=== PATIENT | male | born 1930 | race Caucasian/White ===

== ENCOUNTER 2016-10-18 15:51 | Emergency (ER) | payer OTHER ==
--- NOTE | 2016-10-18 16:01 | PDOC ---
History of Present Illness - General History Source: Family Exam Limitations: Dementia - History of Present Illness Initial Comments: 10/18/16 16:17 The patient is a 86 year old male, with a significant past medical history of dementia and hypothyroidism who was sent to the emergency department by his PCP , , with rectal bleeding. The patients son notes seeing a stream of blood in the toilet bowl after the patient had used the bathroom. The patients son also this past week the patient has fallen 3 times. Son denies any change in his eating habits, but notes the patient has been losing weight. Son denies any previous TIAs or CVAs. Son also denies the patient being on any blood thinners. Son denies any recent fevers, chills, headache or dizziness. Son denies any recent nausea, vomit, diarrhea or constipation. Upon ED arrival the patient has no complainants of pain. Allergies: NKA Past surgical history: Hernia repair. ORIF ankle. Social History: Nonsmoker. Denies EtOH use and recreational drug use. Primary Care Physician: Dr.Andrew Westbrook <Brandon Rutherford - Last Filed: 10/18/16 16:21> - General History Source: Family Exam Limitations: No Limitations, Dementia <Katelin Wilkes - Last Filed: 10/20/16 14:26> - General Chief Complaint: Rectal Bleed Stated Complaint: bleeding from rectum Time Seen by Provider: 10/18/16 15:54 Past History <Brandon Rutherford - Last Filed: 10/18/16 16:21> <Katelni Wilkes - Last Filed: 10/20/16 14:26> - Past Medical History Allergies/Adverse Reactions: Allergies Allergy/AdvReac Type Severity Reaction Status Date / Time No Known Allergies Allergy Verified 10/18/16 15:52 Home Medications: Ambulatory Orders Atorvastatin Ca [Lipitor] 40 mg PO HS 10/18/16 Cholecalciferol (Vitamin D3) [Vitamin D3] 2,000 unit PO DAILY 10/18/16 Citalopram Hydrobromide [Citalopram HBr] 10 mg PO HS 10/18/16 Iron 0 mg PO DAILY 10/18/16 L.acidoph,Paracasei, B.lactis [Probiotic] 1 each PO DAILY 10/18/16 Review of Systems - Review of Systems Able to Perform ROS?: No (Dementia) <Brandon Rutherford - Last Filed: 10/18/16 16:21> *Physical Exam - Physical Exam Comments: 10/18/16 16:21 GENERAL: The patient is in no acute distress. HEAD: Normal with no signs of trauma. EYES: PERRLA, EOMI, sclera anicteric, pale conjunctiva. ENT: Ears normal, nares patent, oropharynx clear without exudates. Moist mucous membranes. NECK: Normal range of motion, supple without lymphadenopathy, JVD, or masses. LUNGS: Breath sounds equal, clear to auscultation bilaterally. No wheezes, and no crackles. RECTAL: Melena in the rectal vault HEART: Regular rate and rhythm, with systolic murmur at the left sternal border. ABDOMEN: Soft, nontender, normoactive bowel sounds. No guarding, no rebound. No masses palpable. EXTREMITIES: Bruise on the left forearm. Normal range of motion, no edema. NEUROLOGICAL: Cranial nerves II through XII grossly intact. Normal speech. No focal neurological deficits. MUSCULOSKELETAL: Back non-tender to palpation, no CVA tenderness SKIN: Warm, Dry, normal turgor, no rashes or lesions noted. <Brandon Rutherford - Last Filed: 10/18/16 16:21> Heart Score/ECG Review #1 ECG reviewed & interpreted by me at: 18:52 10/18/16 18:52 Twelve-lead EKG was performed and reviewed by me. There is normal sinus rhythm with a bradycardiac rate of 58 bpm. The axis is normal. The intervals are normal - pr:202ms (slightly prolonged). There are no ST elevations or depressions. T wave inversions III, aVF. RBBB No old ekg <Katelin Wilkes - Last Filed: 10/20/16 14:26> ED Treatment Course - LABORATORY CBC & Chemistry Diagram: 10/18/16 15:50 10/18/16 15:50 <Brandon Rutherford - Last Filed: 10/18/16 16:21> - LABORATORY CBC & Chemistry Diagram: 10/18/16 15:50 10/18/16 15:50 <Katelin Wilkes - Last Filed: 10/20/16 14:26> Medical Decision Making - Medical Decision Making 10/18/16 16:01 A portion of this note was documented by scribe services under my direction. I have reviewed the details of the note, within reason, and agree with the documentation with the following case summary and management plan written by me. Nursing documentation reviewed and incorporated into medical decision making This is an 86 yo M presenting to the ER s/p concern for anemia Pt son changed his pull ups today and noted rectal bleeding Pt has not had a colonoscopy Pt son contacted Dr Westbrook who sent pt to the ER The patient is a poor historian due to dementia but states he has no abdominal pain, no nausea Pt denies dizziness but pt son states he complains of "foggy eyes" When asked, the patient denies this 10/18/16 16:37 Laboratory Tests 08/05/16 10/18/16 09:37 15:50 WBC 9.4 13.3 H D Hgb 8.7 L 9.8 L D Hct 28.3 L 30.4 L Plt Count 363 D 283 D 10/18/16 17:40 10/18/16 17:40 Laboratory Tests 10/18/16 10/18/16 10/18/16 15:50 15:50 16:31 INR 1.06 Sodium 134 L Potassium 4.1 Chloride 100 Carbon Dioxide 24 BUN 22 H D Creatinine 1.2 Random Glucose 112 H D Stool Occult Blood Negative Case reviewed with Dr Westbrook Pt should be discharged to home He can be seen as an outpatient for follow up with GI I have had a long conversation with son PT should be returned to the ER for any concerns or complaints Of note I have added on troponin, pt has no complaints of chest pain, nausea, no diaphoresis Troponin within nml range Clinical Impression: rectal bleed <Katelin Wilkes - Last Filed: 10/20/16 14:26> *DC/Admit/Observation/Transfer - Attestations Scribe Attestion: 10/18/16 16:15 Documentation prepared by Brandon Rutherford, acting as medical office assistant for Katelin Wilkes MD. <Brandon Rutherford - Last Filed: 10/18/16 16:21> - Discharge Dispostion Admit: No <Katelin Wilkes - Last Filed: 10/20/16 14:26> Diagnosis at time of Disposition: Rectal bleeding - Discharge Dispostion Disposition: HOME Condition at time of disposition: Stable - Referrals Referrals: Brandon Westbrook MD [Primary Care Provider] - - Patient Instructions Printed Discharge Instructions: DI for Rectal Bleeding Additional Instructions: Thank you for bringing Mr Padron to the ER Please monitor for any weakness, repeat rectal bleeding, abdominal pain, any other concerns or complaints Return to the ER at any time for any concerns Please follow up with Dr Westbrook next week
[2016-10-18 16:22] LABS: BASOPHIL 0.7 % (0-2.0); EOSINOPHIL 1.4 % (0-4.5); MCH 27.2 pg (25.7-33.7); MCHC 32.4 g/dl (32.0-35.9); MEAN CELL VOLUME 83.9 fl (80-96); MEAN PLT VOLUME 8.2 fl (7.5-11.1); PLATELET COUNT 283 K/MM3 (134-434); RDW 13.3 % (11.9-15.9); WHITE BLOOD COUNT 13.3 K/mm3 (4.0-10.0)
[2016-10-18 16:34] LABS: INR 1.06 (0.82-1.09); PROTHROMBIN TIME (PATIENT) 11.8 SEC (10.2-13.0)
[2016-10-18 16:36] LABS: ALBUMIN 3.2 g/dl (3.5-5.0); ALK PHOS 123 U/L (32-92); ANION GAP 10 (8-16); BILIRUBIN,TOTAL 0.3 mg/dl (0.2-1.0); CALCIUM 8.7 mg/dl (8.4-10.2); CO2 24 mmol/L (22-28); CREATININE 1.2 mg/dl (0.6-1.3); GLUCOSE,RANDOM 112 mg/dl (74-106); SGOT/AST 24 U/L (10-42); SGPT/ALT 13 U/L (10-40)
[2016-10-18 16:43] VITALS: BP 142/70; PULSE 54; TEMP 97.4; BMI 22.9
[2016-10-18 19:43] LABS: TROPONIN I (DFP) 0.32 ng/ml (0.03-0.50)
--- NOTE | 2016-10-20 16:12 | EKG ---
Test Reason : Blood Pressure : / mmHG Vent. Rate : 057 BPM Atrial Rate : 057 BPM P-R Int : 202 ms QRS Dur : 122 ms QT Int : 476 ms P-R-T Axes : 053 019 -11 degrees QTc Int : 463 ms SINUS BRADYCARDIA RIGHT BUNDLE BRANCH BLOCK T WAVE ABNORMALITY, CONSIDER INFERIOR ISCHEMIA ABNORMAL ECG NO PREVIOUS ECGS AVAILABLE Confirmed by NIEVES NICOLE MD ([id number]) on 10/20/2016 4:11:41 PM Referred By: MD DEGROOT Confirmed By:NIEVES NICOLE MD
== END 2016-10-18 17:50 | disposition home or self-care (01) ==
LOC: FER 15:51
DX: K62.5 Hemorrhage of anus and rectum (principal); E03.9 Hypothyroidism, unspecified; F03.90 Unspecified dementia, unspecified severity, without behavioral disturbance, psychotic disturbance, mood disturbance, and anxiety
CPT/HCPCS: 36415; 71010-TC; 80053; 82272; 82550; 84484; 85025; 85610; 86850; 86900; 86901; 93005; 99284-25

== ENCOUNTER 2016-11-07 07:55 | Day surgery (SDC) | payer OTHER ==
[2016-11-05 10:37] VITALS: BMI 22.2
[2016-11-07] MEDS ORDERED: PROPOFOL 20 ML ONE ×2 (08:10)
[2016-11-07] MEDS ORDERED: ePHEDrine SULFATE 50 MG/1 ML AMPULE ONE (10:07)
[2016-11-07 10:34] VITALS: TEMP 98.6
[2016-11-07 11:47] VITALS: BP 106/40; PULSE 81
--- NOTE | 2016-11-08 12:58 | PATH ---
Surgical Pathology Report Patient Name: GARRY LAZARO [facility]. Rec. 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 Comment: This case was discussed with Dr. Ramachandran on November 08, 2016. Mismatch repair protein analysis by immunohistochemistry is pending, and a report will follow. Electronically Signed Pepe Chambers M.D. Addendum Reported: 11/11/2016 Addendum Diagnosis Immunohistochemical stains for MisMatch Repair Protein Analysis performed at [facility] in [place], [place] ([id number]) and interpreted at [facility] show the following: RESULTS: HMLH-1 INTACT NUCLEAR EXPRESSION HMSH-2 INTACT NUCLEAR EXPRESSION HMSH-6 INTACT NUCLEAR EXPRESSION PMS2 INTACT NUCLEAR EXPRESSION INTERPRETATION: No loss of nuclear expression of MMR proteins: low probability of microsatellite instability-high (MSI-H) Pepe Chambers M.D. Gross Description Received in formalin, labeled "rectosigmoid" are 3 escobar, irregular portions of soft tissue ranging from 0.1-0.3 cm. in greatest dimension. The specimens are submitted in toto in one cassette. 11/07/201611/07/2016
== END 2016-11-07 11:00 | disposition home or self-care (01) ==
LOC: FASU-ENDO 07:55
PROVIDERS: ATTEND Internal Medicine Gastroenterology
PROC: 0DBN8ZX Excision of Sigmoid Colon, Via Natural or Artificial Opening Endoscopic, Diagnostic (ICD-10-PCS; principal; 2016-11-07 09:42)
DX: D50.9 Iron deficiency anemia, unspecified (principal); C19 Malignant neoplasm of rectosigmoid junction; K57.30 Diverticulosis of large intestine without perforation or abscess without bleeding; K62.5 Hemorrhage of anus and rectum
CPT/HCPCS: 88305-TC

== ENCOUNTER 2017-01-27 10:27 | Observation (INO) | payer OTHER ==
[2017-01-27 10:44] VITALS: BMI 25.4
--- NOTE | 2017-01-27 11:08 | PDOC ---
History of Present Illness - General Chief Complaint: Revisit, Lab Variance Stated Complaint: DEHYDRATED, LOW BP (PCP SENT) Time Seen by Provider: 01/27/17 10:47 History Source: Patient Exam Limitations: No Limitations - History of Present Illness Initial Comments: 01/27/17 11:08 CHIEF COMPLAINT: Sent by radiation oncology HISTORY OF PRESENT ILLNESS: This is an 86 year old male with a history of Alzheimer's dementia, anemia, anxiety, HLD, and colon cancer on chemotherapy ( Xeloda) and RTX (x 5 treatments) who presented to his radiation oncologist this morning for treatment and was found to be hypotensive to 89/44. He has had a poor appetite and was not drinking fluids over the weekend. His treatment was completed and he was referred to the ED for further evaluation and hydration. BP on arrival is 110/53. Radiation oncologist: Dr. Travis [phone] Oncologist: Dr. Trinidad [phone] GI: Dr. Ramachandran PCP: Dr. Westbrook Past surgical history: Umbilical and left hernia repairs. ORIF ankle. REVIEW OF SYSTEMS: Limited by dementia; provided by GENERAL/CONSTITUTIONAL: Chills, generalized weakness. 70 lb weight loss past 2 years. No fevers. HEAD, EYES, EARS, NOSE AND THROAT: No change in vision. No ear pain or discharge. No sore throat. CARDIOVASCULAR: No chest pain or palpitations. RESPIRATORY: No cough, wheezing, or shortness of breath. GASTROINTESTINAL: Chronic diarrhea, incontinence of stool, and rectal bleeding, unchanged. No nausea, vomiting, or constipation. GENITOURINARY: No dysuria, frequency, or change in urination. MUSCULOSKELETAL: No joint or muscle swelling or pain. No neck or back pain. SKIN: No rash or easy bruising. NEUROLOGIC: No headache, vertigo, loss of consciousness, or loss of sensation. PSYCHIATRIC: History of anxiety. ENDOCRINE: No increased thirst. No abnormal weight change. HEMATOLOGIC/LYMPHATIC: No anemia, easy bleeding, or history of blood clots. ALLERGIC/IMMUNOLOGIC: No hives or skin allergy. No latex allergy. PHYSICAL EXAM: GENERAL: The patient is awake, alert, oriented x 2. HEAD: Normal with no signs of trauma. ENT: Pupils equal, round and reactive to light, extraocular movements intact, sclera anicteric, conjunctiva clear. Neck supple. Mucous membranes dry. No mucositis. LUNGS: Clear to auscultation bilaterally. Normal excursion. No respiratory distress or use of accessory muscles. CV: RRR, S1/S2, no MRG. Cap refill < 2 sec. ABDOMEN: Soft, non-distended, non-tender. EXTREMITIES: Normal range of motion, no edema. NEUROLOGICAL: Normal speech. CN II-XII grossly intact. PSYCH: Normal mood, normal affect. SKIN: Warm, dry, tenting, no rashes or lesions noted. Past History - Past Medical History Allergies/Adverse Reactions: Allergies Allergy/AdvReac Type Severity Reaction Status Date / Time No Known Allergies Allergy Verified 01/27/17 10:40 Home Medications: Ambulatory Orders Atorvastatin Ca [Lipitor] 40 mg PO HS 01/27/17 Cholecalciferol (Vitamin D3) [Vitamin D3] 2,000 unit PO DAILY 01/27/17 Citalopram Hydrobromide [Citalopram HBr] 10 mg PO HS 01/27/17 Iron 18 mg PO DAILY 01/27/17 Levothyroxine [Synthroid -] 25 mcg PO DAILY 01/27/17 Anemia: Yes Asthma: No Cancer: No Cardiac Disorders: No CVA: No COPD: No CHF: No Dementia: Yes Diabetes: No GI Disorders: No Disorders: No HTN: No Hypercholesterolemia: Yes Liver Disease: No Seizures: No Thyroid Disease: Yes (non compliant with medication as per family) - Surgical History Abdominal Surgery: Yes (hernia x2) Appendectomy: No Cardiac Surgery: No Cholecystectomy: No Lung Surgery: No Neurologic Surgery: No Orthopedic Surgery: Yes (ORIF Ankle Fx-Removal of Hardware) - Psycho/Social/Smoking Cessation Hx Anxiety: No Suicidal Ideation: No Smoking History: Former smoker Have you smoked in the past 12 months: No Information on smoking cessation initiated: No Hx Alcohol Use: No Drug/Substance Use Hx: No Substance Use Type: None Hx Substance Use Treatment: No *Physical Exam - Vital Signs Last Vital Signs Temp Pulse Resp BP Pulse Ox 97.7 F 62 19 110/53 97 01/27/17 10:40 01/27/17 10:40 01/27/17 10:40 01/27/17 10:40 01/27/17 10:40 ED Treatment Course - LABORATORY CBC & Chemistry Diagram: 01/27/17 11:27 01/27/17 11:27 Medical Decision Making - Medical Decision Making 01/27/17 11:42 A/P: 86 year old male with colon ca on chemo/RTX presenting from outpatient radiation treatment with hypotension. Clinically dehydrated. 1. EKG 2. Basic labs and blood/urine cultures (chills, on chemotherapy) 3. IV fluids 4. Anticipate admission 01/27/17 14:12 CXR: No acute process WBC 10.3 Hgb 8.7, near baseline Repeat v/s within normal limits Concerned about dehydration and inadequate PO intake at home; will request observation. *DC/Admit/Observation/Transfer Diagnosis at time of Disposition: Dehydration due to radiation - Discharge Dispostion Condition at time of disposition: Guarded Admit: Yes
[2017-01-27] MEDS ORDERED: SODIUM CHLORIDE 1,000 ML IV STA (11:16)
[2017-01-27 11:44] LABS: BASOPHIL 0.5 % (0-2.0); EOSINOPHIL 0.7 % (0-4.5); MCH 27.6 pg (25.7-33.7); MCHC 32.9 g/dl (32.0-35.9); MEAN CELL VOLUME 83.9 fl (80-96); MEAN PLT VOLUME 7.5 fl (7.5-11.1); NEUTROPHILS 74.8 % (42.8-82.8); PLATELET COUNT 208 K/MM3 (134-434); RDW 13.6 % (11.9-15.9); WHITE BLOOD COUNT 10.3 K/mm3 (4.0-10.0)
[2017-01-27 12:13] LABS: ALBUMIN 2.5 g/dl (3.4-5.0); ALK PHOS 119 U/L (45-117); ANION GAP 8 (8-16); BILIRUBIN,TOTAL 0.5 mg/dL (0.2-1.0); CALCIUM 8.1 mg/dL (8.5-10.1); CO2 28 mmol/L (21-32); CREATININE 1.2 mg/dL (0.7-1.3); GLUCOSE,RANDOM 106 mg/dL (74-106); SGOT/AST 17 U/L (15-37); SGPT/ALT 16 U/L (12-78); TOT PROT 6.1 g/dl (6.4-8.2)
[2017-01-27 12:15] LABS: TROPONIN I 0.02 ng/ml (0.00-0.05)
[2017-01-27 12:38] LABS: INR 1.2 (0.82-1.09); PROTHROMBIN TIME (PATIENT) 13.3 SEC (9.98-11.88)
[2017-01-27] MEDS ORDERED: SODIUM CHLORIDE 1,000 ML IV SCH ×3 (13:00→16:43)
[2017-01-27 14:49] LABS: URINE APPEARANCE CLEAR; URINE BILIRUBIN NEGATIVE (NEGATIVE); URINE BLOOD 1+ (NEGATIVE); URINE COLOR STRAW; URINE GLUCOSE (UA) NEGATIVE (NEGATIVE); URINE KETONE NEGATIVE (NEGATIVE); URINE LEUK ESTERASE NEGATIVE (NEGATIVE); URINE NITRITE NEGATIVE (NEGATIVE); URINE PROTEIN NEGATIVE (NEGATIVE); URINE UROBILINOGEN NEGATIVE mg/dL (0.2-1.0)
[2017-01-27 14:59] LABS: URINE MUCUS RARE; URINE RBC <1 /hpf (0-3)
--- NOTE | 2017-01-27 16:14 | HP ---
Admitting History and Physical - Primary Care Physician PCP: Brandon Westbrook - Admission Chief Complaint: hypotension History of Present Illness: 86M with history of colon Ca on chemo and radiation presents to the ED form his radiation oncologists office for hypotension. Patient noted to be SBP in mid 80' s at the office. Patient came to ED after radiation treatment. Per patient and family he has had decreased PO intake over the past week and has not been keeping himself adequately hydrated. He denies nausea vomiting fevers chest pain or shortness of breath. He denies any urinary or GI symptoms. He does endorse about a one month history of chills. History Source: Patient, Family Member, Significant Other, Medical Record Limitations to Obtaining History: Clinical Condition, Dementia, Poor Historian - Past Medical History PRODUCTION PACKAGER: Yes: Alzheimer's Cardiovascular: Yes: Hyperlipdemia Heme/Onc: Yes: Anemia, Cancer (colon) Psych: Yes: Anxiety Endocrine: Yes: Hypothyroidism - Past Surgical History Past Surgical History: Yes: Hernia Repair (epigastric and gastric) Additional Past Surgical History: ankle surgery - Smoking History Smoking history: Former smoker Have you smoked in the past 12 months: No - Alcohol/Substance Use Hx Alcohol Use: No Number of Drinks Daily: 0 History of Substance Use: reports: None - Social History Usual Living Arrangement: Yes: With Spouse ADL: Family Assistance Home Medications - Allergies Allergies/Adverse Reactions: Allergies Allergy/AdvReac Type Severity Reaction Status Date / Time No Known Allergies Allergy Verified 01/27/17 10:40 - Home Medications Home Medications: Ambulatory Orders Atorvastatin Ca [Lipitor] 40 mg PO HS 01/27/17 Capecitabine [Xeloda] 1,000 mg PO BID 01/27/17 Cholecalciferol (Vitamin D3) [Vitamin D3] 2,000 unit PO DAILY 01/27/17 Citalopram Hydrobromide [Citalopram HBr] 10 mg PO HS 01/27/17 Ferrous Sulfate 325 mg PO DAILY 01/27/17 Levothyroxine [Synthroid -] 25 mcg PO DAILY 01/27/17 Family Disease History - Family Disease History Family Disease History: Heart Disease: Mother ("enlarged heart"), Brother, CA: Sister (gastric ) Review of Systems - Review of Systems Constitutional: reports: Chills Eyes: reports: No Symptoms HENT: reports: No Symptoms Cardiovascular: reports: No Symptoms Respiratory: reports: No Symptoms Gastrointestinal: reports: No Symptoms Genitourinary: reports: Frequency Musculoskeletal: reports: No Symptoms Integumentary: reports: No Symptoms Neurological: reports: Other (occasinal lightheadedness) Endocrine: reports: No Symptoms Hematology/Lymphatic: reports: No Symptoms Psychiatric: reports: Anxiety Physical Examination Vital Signs: Vital Signs Temperature 98 F 01/27/17 14:24 Pulse Rate 80 01/27/17 14:24 Respiratory Rate 20 01/27/17 14:24 Blood Pressure 138/58 01/27/17 14:24 O2 Sat by Pulse Oximetry (%) 97 01/27/17 14:24 Constitutional: Yes: No Distress, Calm, Ashen Eyes: Yes: Conjunctiva Clear, EOM Intact HENT: Yes: Other (dry mucous membranes) Neck: Yes: Supple, Trachea Midline Cardiovascular: Yes: Regular Rate and Rhythm Respiratory: Yes: Other (right sided crackles left side clear) Gastrointestinal: Yes: Normal Bowel Sounds, Soft ...Rectal Exam: Yes: Deferred Edema: Yes Edema: LLE: Trace, RLE: Trace Neurological: Yes: Alert, Oriented (to self and place. knows the president.) Labs: Laboratory Last Values WBC 10.3 K/mm3 (4.0-10.0) H 01/27/17 11:27 RBC 3.15 M/mm3 (4.00-5.60) L 01/27/17 11:27 Hgb 8.7 GM/dL (11.7-16.9) L 01/27/17 11:27 Hct 26.4 % (35.4-49) L 01/27/17 11:27 MCV 83.9 fl (80-96) 01/27/17 11:27 MCH 27.6 pg (25.7-33.7) 01/27/17 11:27 MCHC 32.9 g/dl (32.0-35.9) 01/27/17 11:27 RDW 13.6 % (11.9-15.9) 01/27/17 11:27 Plt Count 208 K/MM3 (134-434) 01/27/17 11:27 MPV 7.5 fl (7.5-11.1) 01/27/17 11:27 Neutrophils % 74.8 % (42.8-82.8) 01/27/17 11:27 Lymphocytes % 11.8 % (8-40) 01/27/17 11:27 Monocytes % 12.2 % (3.8-10.2) H 01/27/17 11:27 Eosinophils % 0.7 % (0-4.5) 01/27/17 11:27 Basophils % 0.5 % (0-2.0) 01/27/17 11:27 INR 1.20 (0.82-1.09) H 01/27/17 12:10 Sodium 135 mmol/L (136-145) L 01/27/17 11:27 Potassium 3.7 mmol/L (3.5-5.1) 01/27/17 11:27 Chloride 99 mmol/L (98-107) 01/27/17 11:27 Carbon Dioxide 28 mmol/L (21-32) 01/27/17 11:27 Anion Gap 8 (8-16) 01/27/17 11:27 BUN 18 mg/dL (7-18) 01/27/17 11:27 Creatinine 1.2 mg/dL (0.7-1.3) 01/27/17 11:27 Creat Clearance w eGFR 57.41 (>60) 01/27/17 11:27 Random Glucose 106 mg/dL (74-106) 01/27/17 11:27 Lactic Acid 1.4 mmol/L (0.4-2.0) 01/27/17 12:10 Calcium 8.1 mg/dL (8.5-10.1) L 01/27/17 11:27 Total Bilirubin 0.5 mg/dL (0.2-1.0) 01/27/17 11:27 AST 17 U/L (15-37) 01/27/17 11:27 ALT 16 U/L (12-78) 01/27/17 11:27 Alkaline Phosphatase 119 U/L (45-117) H 01/27/17 11:27 Creatine Kinase 31 IU/L (39-308) L 01/27/17 11:27 Troponin I 0.02 ng/ml (0.00-0.05) 01/27/17 11:27 Total Protein 6.1 g/dl (6.4-8.2) L 01/27/17 11:27 Albumin 2.5 g/dl (3.4-5.0) L 01/27/17 11:27 Urine Color Straw 01/27/17 14:29 Urine Appearance Clear 01/27/17 14:29 Urine pH 5.0 (5.0-8.0) 01/27/17 14:29 Urine Protein Negative (NEGATIVE) 01/27/17 14:29 Urine Glucose (UA) Negative (NEGATIVE) 01/27/17 14:29 Urine Ketones Negative (NEGATIVE) 01/27/17 14:29 Urine Blood 1+ (NEGATIVE) H 01/27/17 14:29 Urine Nitrite Negative (NEGATIVE) 01/27/17 14:29 Urine Bilirubin Negative (NEGATIVE) 01/27/17 14:29 Urine Urobilinogen Negative mg/dL (0.2-1.0) 01/27/17 14:29 Ur Leukocyte Esterase Negative (NEGATIVE) 01/27/17 14:29 Urine RBC <1 /hpf (0-3) 01/27/17 14:29 Urine WBC None /hpf (3-5) 01/27/17 14:29 Urine Mucus Rare 01/27/17 14:29 Imaging - Results Chest X-ray: Report Reviewed, Image Reviewed Assessment/Plan 86M with colon Ca presents to the hospital with volume depletion secondary to poor oral intake. Problem list: volume depletion-hyponatremic hypovolemia-likely from poor oral intake and also last week was a heat wave and during that time he had poor oral intake and likely did not replete his insensible losses dehydration alzheimer's dementia colon cancer on chemo and radiation Iron deficiency anemia chronic anxiety anorexia protein calorie malnutrition hypoalbuminemia HLD hypothyroidism Plan: Place on observation received 2L bolus in ED continue IVF NS @ 50ml/hr Check BMP Mg Phos in AM restart statin Restart Iron Restart Xeloda Dietary consult will consider appetite stimulants such as megace or marinol continue citalopram will evaluate patient in a constant basis to avoid fluid overload continue levothyroxine 25mcg PO Qam Hb 8.7 at baseline DVT PPx Case discusses with attending and medical team Visit type - Emergency Visit Emergency Visit: Yes ED Registration Date: 01/27/17 Care time: The patient presented to the Emergency Department on the above date and was hospitalized for further evaluation of their emergent condition. - New Patient This patient is new to me today: Yes Date on this admission: 01/27/17 - Critical Care Critical Care patient: No
--- NOTE | 2017-01-27 16:18 | HP ---
CHIEF COMPLAINT: Dizziness PCP: Dr. Westbrook HISTORY OF PRESENT ILLNESS: 86 y.o. M with a PMH of alzheimers, anemia, anxiety, HLD, hypothyroidism, and recent diagnosis of colon cancer (November 2016) on chemotherapy (Xeloda) and Radiation therapy (x9 txs) presented to the ED for dizziness. Patient received radiation treatment earlier today. Prior to treatment, his blood pressure was found to be 89/44. Patient noted to have dizziness and came to the ED. Of note, patient recently received new dentures, which has contributed to his loss of appetite. ER course was notable for: (1) IVF NS 2 L bolus (2) CBC, BMP, UA PAST MEDICAL HISTORY: As stated above PAST SURGICAL HISTORY: hernia x2, ankle fx (ORIF) Social History: Smoking: Previous smoker Alcohol: denies Drugs: denies Family History: n/a Allergies No Known Allergies Allergy (Verified 01/27/17 10:40) HOME MEDICATIONS: Home Medications Medication Instructions Recorded Atorvastatin Ca [Lipitor] 40 mg PO HS 01/27/17 Capecitabine [Xeloda] 1,000 mg PO BID 01/27/17 Cholecalciferol (Vitamin D3) 2,000 unit PO DAILY 01/27/17 [Vitamin D3] Citalopram Hydrobromide 10 mg PO HS 01/27/17 [Citalopram HBr] Ferrous Sulfate 325 mg PO DAILY 01/27/17 Levothyroxine [Synthroid -] 25 mcg PO DAILY 01/27/17 REVIEW OF SYSTEMS CONSTITUTIONAL: Absent: fever, diaphoresis, generalized weakness, malaise, weight change Present: chills, loss of appetite HEENT: Absent: rhinorrhea, nasal congestion, throat pain, throat swelling, difficulty swallowing, mouth swelling, ear pain, eye pain, visual changes CARDIOVASCULAR: Absent: chest pain, syncope, palpitations, irregular heart rate, peripheral edema Present: lightheadedness RESPIRATORY: Absent: cough, shortness of breath, dyspnea with exertion, orthopnea, wheezing, stridor, hemoptysis GASTROINTESTINAL: Absent: abdominal pain, abdominal distension, nausea, vomiting, diarrhea, constipation, melena, hematochezia GENITOURINARY: Absent: dysuria, urgency, hesitancy, hematuria, flank pain, genital pain Present: urinary frequency MUSCULOSKELETAL: Absent: myalgia, arthralgia, joint swelling, back pain, neck pain SKIN: Absent: rash, itching, pallor HEMATOLOGIC/IMMUNOLOGIC: Absent: easy bleeding, easy bruising, lymphadenopathy, frequent infections ENDOCRINE: Absent: unexplained weight gain, unexplained weight loss, heat intolerance, cold intolerance NEUROLOGIC: Absent: headache, focal weakness or paresthesias, dizziness, unsteady gait, seizure, mental status changes, bladder or bowel incontinence PSYCHIATRIC: Absent: anxiety, depression, suicidal or homicidal ideation, hallucinations. PHYSICAL EXAMINATION GENERAL: Awake and alert, in no acute distress. HEAD: Normal with no signs of trauma. EYES: Extraocular movements intact, sclera anicteric, conjunctival pallor. No lid lag. EARS, NOSE, THROAT: Oropharynx clear without exudates. Dry mucous membranes. NECK: Normal range of motion, supple without lymphadenopathy, JVD, or masses. LUNGS: Breath sounds equal, clear to auscultation on L side. Right sided crackles. No accessory muscle use. HEART: Regular rate and rhythm, normal S1 and S2 without murmur, rub or gallop. ABDOMEN: Soft, nontender, not distended, normoactive bowel sounds, no guarding, no rebound, no masses. No hepatomegaly or splenomegaly. MUSCULOSKELETAL: Normal range of motion at all joints. No bony deformities or tenderness UPPER EXTREMITIES: 1+ pulses, warm, well-perfused. No cyanosis. No clubbing. No peripheral edema. LOWER EXTREMITIES: 2+ pulses, warm, well-perfused. No calf tenderness. No peripheral edema. NEUROLOGICAL: Cranial nerves II-XII intact. Normal speech. No gait. PSYCHIATRIC: Cooperative. Good eye contact. Appropriate mood and affect. SKIN: Warm, dry, normal turgor, no rashes or lesions noted, delayed capillary refill. ASSESSMENT/PLAN: 86 year old male with multiple medical comorbidities s/p radiation treatment presented to the ED for dizziness and hypotension and admitted for hypotension secondary to dehydration. # Hypotension secondary to dehydration -Received NS IVF in ED Bolus x2 -Will continue at 75 cc/hr, will monitor for fluid overload. -Soft diet- encourage PO intake -Nutrition consult place #Colon cancer -Has received 9 radiation treatments -Continue home Xeloda 1000 mg PO BID #HLD -Continue lipitor 40 mg PO hs #Hypothyroidism -Continue Synthroid 25 mcg PO daily #Anxiety -Continue citalopram 10 mg PO hs #Anemia -Continue Ferrous sulfate 325 mg PO daily #PPX DVT- Lovenox 40 mg SQ daily GI- None #Deconditioning -Patient is in observation. If pt does not go home tomorrow, we will order PT consult. Visit type - Emergency Visit Emergency Visit: Yes ED Registration Date: 01/27/17 Care time: The patient presented to the Emergency Department on the above date and was hospitalized for further evaluation of their emergent condition. - New Patient This patient is new to me today: Yes Date on this admission: 01/27/17 - Critical Care Critical Care patient: No
[2017-01-27] MEDS: ENOXAPARIN NA (PORCINE) 40 MG/0.4 ML DISP.SYRIN SQ SCH (16:54)
--- NOTE | 2017-01-27 17:24 | PN ---
Teaching Attending Note Name of Resident: Dany De Jesus ATTENDING PHYSICIAN STATEMENT I saw and evaluated the patient. I reviewed the resident's note and discussed the case with the resident. I agree with the resident's findings and plan as documented. HPI is from combination of pt who is a poor historian and report from resident SUBJECTIVE:86yo M c/o "woozy" for a day. states he felt fine when he woke up this AM but when he was at his radiation oncology appt he felt "woozy", no dizzyness or room spinning sensation. according to him he has been eating well and has not lost any weight (as per report from he has lost 70 pounds over the past few years). denies CP, SOB,fever, chills, pain anywhere, N/V/C/D As per note, SBP was in the 90's. they still gave radiation treatment and when he arrived to the ER his SBP 138. OBJECTIVE: Last Vital Signs Temp Pulse Resp BP Pulse Ox 97.9 F 62 18 142/65 97 01/27/17 16:30 01/27/17 16:30 01/27/17 16:30 01/27/17 16:30 01/27/17 14:24 General NAD, frail elderly man A&O x2 (self and location) HEENT dry oral mucosa CV S1 S2 RRR no murmur/rub/gallop Lungs CTA B/L no wheezing/rales/rhonchi Abdomen firm NT/NT Extremities no pedal edema +Skin tenting ASSESSMENT AND PLAN: 86yo M with PMH colon ca on chemo/Rtx (today cycle #9), alzheimers, dyslipidemia , hypothyroidism, anxiety presented to the ER with dizzyness and hypotension 1. Dehydration- likely due to poor oral intake vs insensible losses vs dehydration due to chemo. medicine observation. received 2L NS in the ER. since BP responded well and likely poor functional status, will cont IVF @ 50cc/h, have night team evaluate pt in the night to observe for signs of volume overload. nutrition consult, may benefit from appetite stimulant. Cx drawn in the ER. no obvious signs of infection. f/u Cx. no indication for abx at this time 2. Iron deficiency anemia- Hgb at baseline. no signs of bleeding. cont iron 3. Colon cancer on chemo/RTx therapy- cont Xeloda. cont outpatient RTx treatment 4. Alzheimer dementia- as per in the ER, pt is at baseline. pt is fall risk. bedbound at baseline. 5. Hypothyroid- cont LT4 6. DVT ppx- lovenox as high risk for DVT 7. d/c planning in the AM if pt clinically improves.
[2017-01-27] MEDS ORDERED: ATORVASTATIN CA 40 MG TABLET (FP) PO SCH (22:00)
[2017-01-27] MEDS ORDERED: CAPECITABINE 500 MG TABLET PO SCH (22:00)
[2017-01-27] MEDS ORDERED: CITALOPRAM HYDROBROMIDE 10 MG TABLET (FP) PO SCH (22:00)
[2017-01-28] MEDS ORDERED: LEVOTHYROXINE NA 25 MCG TABLET (FP) PO SCH (07:00)
[2017-01-28 07:18] LABS: ANION GAP 6 (8-16); CALCIUM 7.6 mg/dL (8.5-10.1); CO2 26 mmol/L (21-32); CREATININE 0.9 mg/dL (0.7-1.3); GLUCOSE,RANDOM 82 mg/dL (74-106); MAGNESIUM 1.9 mg/dL (1.8-2.4); PHOSPHOROUS 2.8 mg/dL (2.5-4.9)
--- NOTE | 2017-01-28 08:25 | MSN ---
Progress Note (SOAP) - Subjective Chief Complaint: Patient seen and examined at bedside. Patient is confused and difficult to redirect this morning, needed to re-establish that he was in the hospital and his would be coming later. Per pt's in the ED he has had dizziness, decreased appetite, and increased urinary voiding for the past few weeks. No overnight events, per nursing. - Current Medications Current Medications: Active Medications Atorvastatin Calcium (Lipitor -) 40 mg PO [facility] Last Admin: 01/27/17 21:54 Dose: 40 mg Capecitabine (Xeloda -) 1,000 mg PO BID [facility] Last Admin: 01/27/17 21:54 Dose: Not Given Cholecalciferol (Vitamin D3 -) 2,000 unit PO DAILY [facility] Citalopram Hydrobromide (Celexa -) 10 mg PO [facility] Last Admin: 01/27/17 22:07 Dose: 10 mg Enoxaparin Sodium (Lovenox -) 40 mg SQ DAILY [facility] Last Admin: 01/27/17 16:54 Dose: 40 mg Ferrous Sulfate (Feosol -) 325 mg PO DAILY [facility] Sodium Chloride (Normal Saline -) 1,000 mls @ 50 mls/hr IV ASDIR [facility] Last Admin: 01/27/17 17:07 Dose: 50 mls/hr Levothyroxine Sodium (Synthroid -) 25 mcg PO DAILY@0700 [facility] Last Admin: 01/28/17 06:33 Dose: 25 mcg - Objective Vital Signs: Vital Signs Temperature 98.0 F 01/28/17 06:08 Pulse Rate 63 01/28/17 06:08 Respiratory Rate 64 H 01/28/17 06:08 Blood Pressure 128/64 01/28/17 06:08 O2 Sat by Pulse Oximetry (%) 95 01/28/17 01:00 Constitutional: Yes: Anxious, Mild Distress Eyes: Yes: PERRL (Conjunctival pallor, unchanged from previous exam ) HENT: Yes: Atraumatic, Normocephalic Cardiovascular: Yes: Regular Rate and Rhythm, Murmur (systolic, III/) Respiratory: Yes: Regular (R sided crackles mid-lower lobes, unchanged from previous exam ) Gastrointestinal: Yes: Normal Bowel Sounds (in all four quadrants ), Soft Musculoskeletal: Yes: Muscle Weakness (generalized, baseline is bed bound ) Extremities: Yes: Cool (UE/LE equally ) Peripheral Pulses: Left Radial: 2+, Right Radial: 2+, Left Doralis Pedis: 1+, Right Dorsalis Pedis: 1+ Edema: Yes (trace LE edema ) Neurological: Yes: Alert (not oriented to place or time, knew Teddy is president ) Psychiatric: Yes: Agitated (hard to redirect ) Labs Lab Results: CBC, BMP 01/28/17 06:05 Assessment/Plan Assessment and Plan: 86yo M with PMH colon ca on chemo/Rtx (today cycle #9), alzheimers, dyslipidemia , hypothyroidism, anxiety presented to the ER with dizzyness and hypotension placed on observation overnight. 1. Dehydration- BP improved 128/64 today. Likely due to poor oral intake vs insensible losses vs dehydration due to chemo. Received 2L NS in the ER and 50cc /hr overnight. BP responded well so likely due to poor functional status. Waiting for nutrition consult, may benefit from appetite stimulant. Cx done in the ER. No acute lung pathology noted. Monitor off abx at this time. 2. Iron deficiency anemia- Hgb at baseline. no signs of bleeding. cont iron 3. Colon cancer on chemo/RTx therapy- cont Xeloda. cont outpatient RTx treatment 4. Alzheimer dementia- as per in the ER, pt is at baseline. pt is fall risk. bedbound at baseline. 5. Hypothyroid- cont levothyroxine 25mcg QD, PO 6. Anxiety- cont citalopram 10mg QD, PO 7. DVT ppx- cont lovenox 40U SQ as high risk for DVT
[2017-01-28] MEDS ORDERED: CHOLECALCIFEROL (VITAMIN D3) 1,000 UNIT TABLET (FP) PO SCH (10:00)
[2017-01-28] MEDS ORDERED: FERROUS SO4 325 MG TABLET (FP) PO SCH (10:00)
[2017-01-28] MEDS: ENOXAPARIN NA (PORCINE) 40 MG/0.4 ML DISP.SYRIN SQ SCH (10:38)
[2017-01-28 11:11] VITALS: BP 104/55; PULSE 60; TEMP 97.8
[2017-01-28] MEDS ORDERED: PT OWN MED DRAWER 7, Y5N ONE (12:33)
--- NOTE | 2017-01-28 13:00 | PN ---
Teaching Attending Note Name of Resident: Chico Morrissey ATTENDING PHYSICIAN STATEMENT I saw and evaluated the patient. I reviewed the resident's note and discussed the case with the resident. I agree with the resident's findings and plan as documented. SUBJECTIVE:states he feels fine. denies Cp, SOB, fever, chills, N/V/C/D, "woozy " OBJECTIVE: Last Vital Signs Temp Pulse Resp BP Pulse Ox 97.8 F 60 20 104/55 95 01/28/17 10:00 01/28/17 10:00 01/28/17 10:00 01/28/17 10:00 01/28/17 01:00 General NAD, frail elderly man A&O x2 (self and location) HEENT moist oral mucosa CV S1 S2 RRR +systolic murmur no rub/gallop Lungs CTA B/L no wheezing/rales/rhonchi Abdomen firm NT/NT Extremities no pedal edema ASSESSMENT AND PLAN: 86yo M with PMH colon ca on chemo/Rtx (today cycle #9), alzheimers, dyslipidemia , hypothyroidism, anxiety presented to the ER with dizzyness and hypotension 1. Dehydration- likely due to poor oral intake vs insensible losses vs dehydration due to chemo. clinically improved with IV hydration. nutrition consult. recommended starting ensures. if continues to loose weight will need to consider starting appetite stimulant. 2. Iron deficiency anemia- Hgb at baseline. no signs of bleeding. cont iron 3. Colon cancer on chemo/RTx therapy- cont Xeloda. cont outpatient RTx treatment 4. Alzheimer dementia- as per in the ER, pt is at baseline. pt is fall risk. bedbound at baseline. 5. Hypothyroid- cont LT4 6. DVT ppx- lovenox as high risk for DVT 7. d/c home
--- NOTE | 2017-01-28 13:07 | DS ---
Physical Exam: SUBJECTIVE: Patient seen and examined. Offered no complaints. OBJECTIVE: Vital Signs Period Temp Pulse Resp BP Sys/Mehta Pulse Ox Last 24 Hr 97.8 F-98.0 F 60-68 18-64 104-142/55-66 95 PHYSICAL EXAM GENERAL: The patient is awake, alert, oriented X 1 (name), in no acute distress. HEAD: Normal with no signs of trauma. LUNGS: Breath sounds equal, clear to auscultation bilaterally, no wheezes, no crackles, no accessory muscle use. HEART: Regular rate and rhythm, S1, S2 without murmur, rub or gallop. ABDOMEN: Soft, nontender, nondistended, normoactive bowel sounds, no guarding, no rebound, no hepatosplenomegaly, no masses. EXTREMITIES: 2+ radial pulses B/L, warm, well-perfused, no edema. SKIN: Warm, dry, normal turgor, no rashes or lesions noted. LABS Laboratory Results - last 24 hr 01/28/17 06:05 Sodium 137 Potassium 3.6 Chloride 105 Carbon Dioxide 26 Anion Gap 6 L BUN 16 Creatinine 0.9 D Random Glucose 82 D Calcium 7.6 L Phosphorus 2.8 Magnesium 1.9 HOSPITAL COURSE: 86 y.o. M with a PMH of alzheimers, anemia, anxiety, HLD, hypothyroidism, and recent diagnosis of colon cancer (November 2016) on chemotherapy (Xeloda) and Radiation therapy (x9 txs) presented to the ED s/p radiation earlier that morning referred to the ED by his radiation oncologist for hypotension. Admitted for hypotension secondary to dehydration. Patient received 2L of NS in the ED and a continuous bolus of NS @ 50CC per hour for 1 day. Patient was restarted on his home medications. Diet education provided to family on improving intake/high Calorie/high protein diet & improving hydration/dietary management of diarrhea. Automatic Buffer recommended soft diet and may benefit from Ensure Enlive between meals (700 Elvis, 40 g protein). Date of Admission:01/27/17 Date of Discharge: 01/28/17 Minutes to complete discharge: 30 Discharge Summary Reason For Visit: DEHYDRATION DUE TO RADIATION Current Active Problems Dehydration due to radiation (Acute) Hypotension (Acute) Colon cancer (Chronic) Condition: Improved - Instructions Diet, Activity, Other Instructions: You were in the hospital for dehydration and low blood pressure. You were given IV fluids and improved. Follow up with your primary care physician in 1 week. Stay hydrated by drinking plenty of water. We recommend drinking Ensure 3 times a day to keep up with your nutrition and help with weight gain. If you have chest pain, shortness of breath, or any new symptoms, please come back to the hospital. Referrals: Brandon Westbrook MD [Primary Care Provider] - Disposition: HOME - Home Medications Comprehensive Discharge Medication List: Ambulatory Orders Atorvastatin Ca [Lipitor] 40 mg PO HS 01/27/17 Capecitabine [Xeloda] 1,000 mg PO BID 01/27/17 Cholecalciferol (Vitamin D3) [Vitamin D3] 2,000 unit PO DAILY 01/27/17 Citalopram Hydrobromide [Citalopram HBr] 10 mg PO HS 01/27/17 Ferrous Sulfate 325 mg PO DAILY 01/27/17 Levothyroxine [Synthroid -] 25 mcg PO DAILY 01/27/17 This patient is new to me today: Yes Date on this admission: 01/28/17 Emergency Visit: No Critical Care patient: No - Discharge Referral Referred to [facility] Med [facility].C.: Yes Physician Referral: Brandon Westbrook MD (Int Med)
--- NOTE | 2017-01-28 20:57 | EKG ---
Test Reason : Blood Pressure : / mmHG Vent. Rate : 060 BPM Atrial Rate : 060 BPM P-R Int : 202 ms QRS Dur : 128 ms QT Int : 472 ms P-R-T Axes : 067 012 -14 degrees QTc Int : 472 ms SINUS RHYTHM BASELINE ARTIFACT RIGHT BUNDLE BRANCH BLOCK ABNORMAL ECG WHEN COMPARED WITH ECG OF 18-OCT-2016 16:12, NO SIGNIFICANT CHANGE WAS FOUND Confirmed by JHONATHAN HOOPER MD ([id number]) on 01/28/2017 8:57:49 PM Referred By: Confirmed By:JHONATHAN HOOPER MD
== END 2017-01-28 12:49 | disposition home or self-care (01) ==
LOC: JER 10:27 → JERBED 15:00 → J6S 16:17
PROVIDERS: ADMIT Internal Medicine; ATTEND Internal Medicine
PROC: 3E013GC Introduction of Other Therapeutic Substance into Subcutaneous Tissue, Percutaneous Approach (ICD-10-PCS; principal; 2017-01-27)
PROC: 3E0337Z Introduction of Electrolytic and Water Balance Substance into Peripheral Vein, Percutaneous Approach (ICD-10-PCS; 2017-01-27)
DX: E86.0 Dehydration (principal); I95.9 Hypotension, unspecified; G30.9 Alzheimer's disease, unspecified; F02.80 Dementia in other diseases classified elsewhere, unspecified severity, without behavioral disturbance, psychotic disturbance, mood disturbance, and anxiety; D64.9 Anemia, unspecified; F41.9 Anxiety disorder, unspecified; E03.9 Hypothyroidism, unspecified; C18.9 Malignant neoplasm of colon, unspecified; Z92.21 Personal history of antineoplastic chemotherapy; T66.XXXA Radiation sickness, unspecified, initial encounter; Y84.2 Radiological procedure and radiotherapy as the cause of abnormal reaction of the patient, or of later complication, without mention of misadventure at the time of the procedure; Y82.8 Other medical devices associated with adverse incidents; Y92.89 Other specified places as the place of occurrence of the external cause; Y93.89 Activity, other specified
CPT/HCPCS: 36415; 71010-TC; 80048; 80053; 81003; 81015; 82550; 83605; 83735; 84100; 84484; 85025; 85610; 87040; 87086; 93005; 93010; 99285-25; G0378

== ENCOUNTER 2017-01-29 14:45 | Inpatient (IN) | payer OTHER ==
--- NOTE | 2017-01-29 15:05 | PDOC ---
History of Present Illness - General Chief Complaint: Blood Pressure Problem Stated Complaint: CHILLS AND HTN Time Seen by Provider: 01/29/17 15:02 - History of Present Illness Initial Comments: 86 y.o. M with a PMH of alzheimers, anemia, anxiety, HLD, hypothyroidism, and recent diagnosis of colon cancer (November 2016) on chemotherapy (Xeloda-Capecitabine , currently on an "off" week) and Radiation therapy (x10 txs most recent this AM ) presenting to the ED hypertension and chills. Patient received radiation treatment earlier this AM without issue and returned home to take a nap. After wakig up, his family noticed that he was shaking and generally lethargic. They checked a blood pressure which was elevated to 200s systolic. The family brought the patient in for further evaluation. He was jsut recently admitted and discharged from [facility] for hyptonsion after radiation therapy and was discharged yesterday afternoon on 01/28/17. He was not noticed to be febrile and his hypotension was attributed to dehyrdation which resolved after IV fluid administration. 01/29/17 15:50 Past History - Past Medical History Allergies/Adverse Reactions: Allergies Allergy/AdvReac Type Severity Reaction Status Date / Time No Known Allergies Allergy Verified 01/29/17 14:46 Home Medications: Ambulatory Orders Atorvastatin Ca [Lipitor] 40 mg PO HS 01/27/17 Capecitabine [Xeloda] 1,000 mg PO ASDIR 01/27/17 Cholecalciferol (Vitamin D3) [Vitamin D3] 2,000 unit PO DAILY 01/27/17 Citalopram Hydrobromide [Citalopram HBr] 10 mg PO HS 01/27/17 Ferrous Sulfate 325 mg PO DAILY 01/27/17 Levothyroxine [Synthroid -] 25 mcg PO DAILY 01/27/17 Anemia: Yes Asthma: No Cancer: No Cardiac Disorders: No CVA: No COPD: No CHF: No Dementia: Yes Diabetes: No GI Disorders: No Disorders: No HTN: No Hypercholesterolemia: Yes Liver Disease: No Seizures: No Thyroid Disease: Yes (non compliant with medication as per family) - Surgical History Abdominal Surgery: Yes (hernia x2) Appendectomy: No Cardiac Surgery: No Cholecystectomy: No Lung Surgery: No Neurologic Surgery: No Orthopedic Surgery: Yes (ORIF Ankle Fx-Removal of Hardware) - Psycho/Social/Smoking Cessation Hx Anxiety: No Suicidal Ideation: No Smoking History: Former smoker Have you smoked in the past 12 months: No Hx Alcohol Use: No Drug/Substance Use Hx: No Substance Use Type: None Hx Substance Use Treatment: No Review of Systems - Review of Systems Able to Perform ROS?: No (Most obtained from family) Constitutional: Yes: Chills, Fever, Weakness. No: Loss of Appetite Respiratory: No: Shortness of Breath, SOB with Exertion, SOB at Rest, Wheezing Cardiac (ROS): Yes: Lightheadedness. No: Irregular Heart Rate, Palpitations ABD/GI: No: Poor Appetite : Yes: Incontinence (Baseline urinary incontinence). No: Hematuria Musculoskeletal: Yes: Other (Ambulates with human assistance and walker) *Physical Exam - Physical Exam General Appearance: Yes: Appropriately Dressed, Apparent Distress, Mild Distress , Thin HEENT: positive: EOMI, MAUNEL. negative: Scleral Icterus (R), Scleral Icterus (L) Neck: positive: Trachea midline. negative: Tender Respiratory/Chest: positive: Lungs Clear, Normal Breath Sounds. negative: Chest Tender, Respiratory Distress, Accessory Muscle Use Cardiovascular: positive: Regular Rhythm, Regular Rate, Murmur, Systolic Murmur Gastrointestinal/Abdominal: positive: Normal Bowel Sounds, Flat, Soft. negative : Tender, Organomegaly, Pulsatile Mass Musculoskeletal: positive: Normal Inspection Integumentary: positive: Normal Color, Dry, Warm Neurologic: positive: sorter/assay tech II-XII NML intact, Alert ED Treatment Course - LABORATORY CBC & Chemistry Diagram: 01/29/17 15:15 01/29/17 14:04 Medical Decision Making - Medical Decision Making 86 year old male with PMH of colon cancer (on cemotherapy and radiation therapy ) presenting with fever, chills, and hypertension. He underwent a radiation therapy treatment this AM without issue. He was discharged from [facility] yesterday for hypotension after his 9th roudn of radiatin therapy. This si most concerning for an infectious etiology although he could quuite possibly be undergoing a systemic inflammatory response from the recent radiation therapy. He does deny any symptoms from his previous radiation therapy treatments. We will work him up broadly with CBC with diff, CMP, blood cultures x2, lactic acid , CXR, UA/ UC, and will give 500 mL NS /hr for mod /mild MR/mild TR noticed on previous echo (EF 78% 11/2016). 01/29/17 16:01 01/29/17 17:44 UA returned with increased WBCs and mod bacteria which is new from 2 days previous. Also has a WBC of 14.7 which is increased from 10 two days ago. CXR appears clear. Will admit to Dr. Vivar for sepsis secondary to UTI and IV abx administration. *DC/Admit/Observation/Transfer Diagnosis at time of Disposition: Sepsis due to urinary tract infection - Discharge Dispostion Condition at time of disposition: Stable Admit: Yes - Referrals Referrals: Brandon Westbrook MD [Primary Care Provider] - - Patient Instructions - Post Discharge Activity - Attestations Physician Attestion: 01/29/17 17:47 I, Dr. Lalita Summers, attest that this document has been prepared under my direction and personally reviewed by me in its entirety. I further attest, that it accurately reflects all work, treatment, procedures and medical decision -making performed by me.
[2017-01-29] MEDS ORDERED: ACETAMINOPHEN 325 MG TABLET (FP) PO ONE ×2 (15:10)
[2017-01-29 15:14] VITALS: BMI 25.6
[2017-01-29] MEDS ORDERED: ACETAMINOPHEN 325 MG TABLET (FP) ONE (15:17)
[2017-01-29 15:24] LABS: MEAN PLT VOLUME 7.4 fl (7.5-11.1); WHITE BLOOD COUNT 14.7 K/mm3 (4.0-10.8)
[2017-01-29 15:29] LABS: PH,URINE 5.5 (4.5-8); URINE APPEARANCE Clear; URINE BILIRUBIN Negative (NEGATIVE); URINE BLOOD 1+ (NEGATIVE); URINE GLUCOSE (UA) Negative (NEGATIVE); URINE KETONE Negative (NEGATIVE); URINE LEUK ESTERASE Negative (NEGATIVE); URINE NITRITE Negative (NEGATIVE)
[2017-01-29 15:30] LABS: MCH 27.7 pg (25.7-33.7); MCHC 33.8 g/dl (32.0-35.9); MEAN CELL VOLUME 81.9 fl (80-96); PLATELET COUNT 246 K/MM3 (134-434); RDW 13.4 % (11.9-15.9)
[2017-01-29] MEDS ORDERED: SODIUM CHLORIDE 0.9% 1000 ML INFUS.BAG IV ONE (15:38)
[2017-01-29 15:42] LABS: URINE COLOR YELLOW; URINE PROTEIN 2+ (NEGATIVE)
[2017-01-29 15:54] LABS: ALBUMIN 2.6 g/dl (3.5-5.0); ALK PHOS 103 U/L (32-92); ANION GAP 8 (8-16); BILIRUBIN,TOTAL 0.6 mg/dl (0.2-1.0); CALCIUM 8.2 mg/dl (8.4-10.2); CO2 24 mmol/L (22-28); CREATININE 1.1 mg/dl (0.6-1.3); GLUCOSE,RANDOM 142 mg/dl (74-106); SGOT/AST 22 U/L (10-42); SGPT/ALT 13 U/L (10-40); TOT PROT 5.7 g/dl (6.4-8.3)
--- NOTE | 2017-01-29 16:09 | PDOC ---
Attending Attestation - HPI HPI: The patient is an 86 yo M discharged from [facility] yesterday with a past medical history significant for alzheimer's, anemia, anxiety, HLD, hypothyroidism, and recent diagnosis of colon cancer (November 2016) on chemotherapy (Xeloda) and Radiation therapy (x9 txs) who presents with generalized weakness and shaking since earlier today. As per the patients family, the patient received his radiation therapy this morning and took a nap. When he woke up, he was shaking and seemed generally weak. The patients home took his BP and found it to be elevated. The patients family also notes chronic diarrhea. Patients family denies vomiting. As per family, patient is near his baseline functional level. Social Hx: Former smoker PCP: Dr. Westbrook - Physicial Exam PE: GENERAL: Well developed, well nourished. Awake and alert. No acute distress. HEENT: Normocephalic, atraumatic. PERRLA, EOMI. No conjunctival pallor. Sclera are non- icteric. Dry mucous membranes. Oropharynx is clear. NECK: Supple. Full ROM. No JVD. Carotid pulses 2+ and symmetric, without bruits. No thyromegaly. No lymphadenopathy. CARDIOVASCULAR: Regular rate and rhythm. innocent flow murmur. No rubs, or gallops. Distal pulses are 2+ and symmetric. PULMONARY: No evidence of respiratory distress. Lungs clear to auscultation bilaterally. No wheezing, rales or rhonchi. ABDOMINAL: Soft. Non-tender. Non-distended. No rebound or guarding. No organomegaly. Normoactive bowel sounds. MUSCULOSKELETAL mass at proximal end of R clavicle which the family notes has been present for a number of years but the exact nature of the mass is uncertain. Normal range of motion at all joints. No tenderness. No CVA tenderness. EXTREMITIES: No cyanosis. No clubbing. No edema. No calf tenderness. SKIN: Poor skin turgor. Warm and dry. Normal capillary refill. No rashes. No jaundice. NEUROLOGICAL: No gross focal neurological deficits. PSYCHIATRIC: Cooperative. Good eye contact. Appropriate mood and affect. - Medical Decision Making CXR Impression: Limited study with no evidence of acute pathology. Documentation prepared by Luda Miller, acting as medical doctor md for Eliel Reynoso MD/DO. <Luda Miller - Last Filed: 01/29/17 16:39> - Medical Decision Making 01/29/17 16:26 The patient was recently hospitalized for dehydration at [facility] for 2 days, discharged 2 days ago. According to the family, had shaking chills today. Noted to have a fever now of 101. No symptoms of infection such as cough, abdominal pain, nausea, vomiting, diarrhea, dysuria or frequency. He has an innocent sounding heart murmur, but endocarditis may be a consideration. Fever workup initiated including blood and urine cultures, chest x-ray, and lactic acid. Fluids administered. Further treatment depending on results of studies 01/29/17 17:09 Chest x-ray is a poor study but there are no obvious infiltrates Urinalysis reveals 10-15 white blood cells however, nitrites and leukocyte esterase is negative. This is a potential source, since the urine was clear on January 27. Plan is to admit to hospitalist, cover with empiric antibiotics until culture results are obtained. <Eliel Stoll - Last Filed: 01/29/17 17:10>
[2017-01-29 16:52] LABS: URINE BACTERIA MODERATE /hpf (NEGATIVE)
[2017-01-29 17:15] LABS: PLATELET ESTIMATE ADEQUATE (NORMAL)
[2017-01-29] MEDS ORDERED: SODIUM CHLORIDE 1,000 ML IV SCH (17:30)
[2017-01-29] MEDS ORDERED: LEVOFLOXACIN 500 MG IVPB 100 ML IVPB ONE (17:35)
[2017-01-29] MEDS: LEVOFLOXACIN 500 MG IVPB 100 ML IVPB SCH ×2 (17:37→17:46)
[2017-01-29] MEDS ORDERED: SODIUM CHLORIDE 0.9% 1000 ML INFUS.BAG IV STA (18:17)
[2017-01-29] MEDS ORDERED: SODIUM CHLORIDE 0.9% 500 ML INFUS.BAG IV STA (18:19)
--- NOTE | 2017-01-29 19:34 | HP ---
CHIEF COMPLAINT: Lethargy, Elevated BP PCP: Dr. Westbrook HISTORY OF PRESENT ILLNESS: This is a 86 y/o man with a past medical history of Alzheimer, newly diagnosed Colon Ca (on Chemo, RT). Who presents to the ED from home with lethargy, chills ,and elevated BP systolic 200's. Patient was recently admitted for Dehydration d /cd 01/28. Per ED records: Patient had returned home after undergoing RT, feeling weak, waking up with chills. Patient has Alzheimer's and cannot provide HPI. He denies fever, cough, CP, AP, N/V/D, constipation, dysuria. ER course was notable for: (1) SIRS Criteria Met III (2) Na 130 (3) UA- +1 blood, +1 leukocyte esterase, mod Bacteria Recent Travel: None PAST MEDICAL HISTORY: Alzheimer's HLd Hypothyroid Anemia Anxiety PAST SURGICAL HISTORY: Hernia Repair Social History: Smoking: Former Alcohol: None Drugs: None Lives with spouse, has family assistance Family History: Non-Contributory Allergies No Known Allergies Allergy (Verified 01/29/17 14:46) HOME MEDICATIONS: Home Medications Medication Instructions Recorded Atorvastatin Ca [Lipitor] 40 mg PO HS 01/27/17 Capecitabine [Xeloda] 1,000 mg PO ASDIR 01/27/17 Cholecalciferol (Vitamin D3) 2,000 unit PO DAILY 01/27/17 [Vitamin D3] Citalopram Hydrobromide 10 mg PO HS 01/27/17 [Citalopram HBr] Ferrous Sulfate 325 mg PO DAILY 01/27/17 Levothyroxine [Synthroid -] 25 mcg PO DAILY 01/27/17 REVIEW OF SYSTEMS CONSTITUTIONAL: Lethargy Absent: fever, chills, diaphoresis, generalized weakness, malaise, loss of appetite, weight change HEENT: Absent: rhinorrhea, nasal congestion, throat pain, throat swelling, difficulty swallowing, mouth swelling, ear pain, eye pain, visual changes CARDIOVASCULAR: Absent: chest pain, syncope, palpitations, irregular heart rate, lightheadedness , peripheral edema RESPIRATORY: Absent: cough, shortness of breath, dyspnea with exertion, orthopnea, wheezing, stridor, hemoptysis GASTROINTESTINAL: Absent: abdominal pain, abdominal distension, nausea, vomiting, diarrhea, constipation, melena, hematochezia GENITOURINARY: Absent: dysuria, frequency, urgency, hesitancy, hematuria, flank pain, genital pain MUSCULOSKELETAL: Absent: myalgia, arthralgia, joint swelling, back pain, neck pain SKIN: Absent: rash, itching, pallor HEMATOLOGIC/IMMUNOLOGIC: Absent: easy bleeding, easy bruising, lymphadenopathy, frequent infections ENDOCRINE: Absent: unexplained weight gain, unexplained weight loss, heat intolerance, cold intolerance NEUROLOGIC: Absent: headache, focal weakness or paresthesias, dizziness, unsteady gait, seizure, mental status changes, bladder or bowel incontinence PSYCHIATRIC: Absent: anxiety, depression, suicidal or homicidal ideation, hallucinations. PHYSICAL EXAMINATION Vital Signs - 24 hr 01/29/17 18:51 Pulse Rate [ 88 Left] Blood Pressure 104/46 [Right Arm] O2 Sat by Pulse 96 Oximetry (%) GENERAL: Thin, awake, alert, and oriented to name only, in no acute distress. HEAD: Normal with no signs of trauma. EYES: Pupils equal, round and reactive to light, extraocular movements intact, sclera anicteric, conjunctiva clear. No lid lag. EARS, NOSE, THROAT: Ears normal, nares patent, oropharynx clear without exudates. Dry mucous membranes. NECK: Normal range of motion, supple without lymphadenopathy, JVD, or masses. LUNGS: Breath sounds equal, clear to auscultation bilaterally. No wheezes, and no crackles. No accessory muscle use. HEART: Regular rate and rhythm, normal S1 and S2, rub or gallop. Grade 2 systolic murmur ABDOMEN: Soft, nontender, not distended, normoactive bowel sounds, no guarding, no rebound, no masses. No hepatomegaly or splenomegaly. MUSCULOSKELETAL: Normal range of motion at all joints. No bony deformities or tenderness. No CVA tenderness. UPPER EXTREMITIES: 2+ pulses, warm, well-perfused. No cyanosis. No clubbing. No peripheral edema. LOWER EXTREMITIES: 2+ pulses, warm, well-perfused. No calf tenderness. No peripheral edema. NEUROLOGICAL: Cranial nerves II-XII intact. Normal speech. Gait not observed. PSYCHIATRIC: Cooperative. Good eye contact. Appropriate mood and affect. SKIN: Warm, dry, normal turgor, no rashes or lesions noted, normal capillary refill. Laboratory Results - last 24 hr 01/29/17 01/29/17 01/29/17 14:04 15:15 15:15 WBC 14.7 H RBC 3.27 L Hgb 9.0 L Hct 26.6 L MCV 81.9 MCH 27.7 MCHC 33.8 RDW 13.4 Plt Count 246 MPV 7.4 L Neutrophils % Motel [employer] Lymphocytes % Motel Manager Monocytes % Motel Manager Eosinophils % Motel Manager Basophils % Motel Manager Platelet Estimate Sodium 130 L Potassium 3.9 Chloride 98 Carbon Dioxide 24 Anion Gap 8 BUN 19 H Creatinine 1.1 Creat Clearance w eGFR > 60 Random Glucose 142 H D Lactic Acid Calcium 8.2 L Total Bilirubin 0.6 D AST 22 D ALT 13 Alkaline Phosphatase 103 H Total Protein 5.7 L Albumin 2.6 L Urine Color Yellow Urine Appearance Clear Urine pH 5.5 Ur Specific [place] >= 1.030 H Urine Protein 2+ H Urine Glucose (UA) Negative Urine Ketones Negative Urine Blood 1+ Urine Nitrite Negative Urine Bilirubin Negative Urine Urobilinogen 1.0 Ur Leukocyte Esterase Negative Urine RBC 2-4 Urine WBC 10-15 Urine Bacteria Moderate 01/29/17 01/29/17 01/29/17 15:15 15:42 17:00 WBC RBC Hgb Hct MCV MCH MCHC RDW Plt Count MPV Neutrophils % 93.0 H D Lymphocytes % 5.0 L D Monocytes % 2.0 L D Eosinophils % Basophils % Platelet Estimate Adequate Sodium Potassium Chloride Carbon Dioxide Anion Gap BUN Creatinine Creat Clearance w eGFR Random Glucose Lactic Acid Cancelled 1.5 Calcium Total Bilirubin AST ALT Alkaline Phosphatase Total Protein Albumin Urine Color Urine Appearance Urine pH Ur Specific [place] Urine Protein Urine Glucose (UA) Urine Ketones Urine Blood Urine Nitrite Urine Bilirubin Urine Urobilinogen Ur Leukocyte Esterase Urine RBC Urine WBC Urine Bacteria ASSESSMENT/PLAN: This is a 86 y/o man with a PMHx of: Alzheimer's, HLD, Hypothyroid, Anemia, Anxiety. Admitted for Sepsis secondary to UTI, Generalized Weakness, Hyponatremia for further evaluation of their emergent condition Problem List - Problem (1) Sepsis due to urinary tract infection Assessment/Plan: - qSOFA 2 - SIRS Criteria Met III - Blood Cultures and Urine Culture-pending - Levofloxacin given in ED - Will initiate Ceftriaxone in am - Monitor vitals - Repeat CBC, BMP in am Code(s): A41.9 - SEPSIS, UNSPECIFIED ORGANISM N39.0 - URINARY TRACT INFECTION, SITE NOT SPECIFIED (2) Hyponatremia Assessment/Plan: - Likely secondary to UTI vs Hyperglycemia - Na corrected 131 - Continue gentle IVF - Repeat BMP in am Code(s): E87.1 - HYPO-OSMOLALITY AND HYPONATREMIA (3) Colon cancer Assessment/Plan: - Currently receiving chemo (Xeloda/Capecitabine) off week - Currently receiving Radiation Therapy (x10, this am) Code(s): C18.9 - MALIGNANT NEOPLASM OF COLON, UNSPECIFIED (4) DVT prophylaxis Assessment/Plan: - OOB - SCDs - Heparin SQ Code(s): DKX0178 - Visit type - Emergency Visit Emergency Visit: Yes ED Registration Date: 01/29/17 Care time: The patient presented to the Emergency Department on the above date and was hospitalized for further evaluation of their emergent condition. - New Patient This patient is new to me today: Yes Date on this admission: 01/29/17 - Critical Care Critical Care patient: No
[2017-01-29] MEDS: HEPARIN NA (PORCINE) 5,000 UNITS/ML 1ML VIAL SQ SCH (21:38)
[2017-01-29] MEDS: ATORVASTATIN CA 40 MG TABLET (FP) PO SCH (21:39)
[2017-01-30] MEDS: LEVOTHYROXINE NA 25 MCG TABLET (FP) PO SCH (06:40)
--- NOTE | 2017-01-30 08:16 | PN ---
Physical Exam: SUBJECTIVE: Patient seen and examined, patient reports feeling tired OBJECTIVE: patient is a 86 y/o male with a past medical history of Alzheimer's , HLd, Hypothyroid, Anemia, Anxiety, and rectosigmoid carcinoma(xeloda q2 weeks , radiation therapy x 10 last dose 01/28). Patient was admitted from the emergency department for sepsis and urinary tract infection. Vital Signs Period Temp Pulse Resp BP Sys/Mehta Pulse Ox Last 24 Hr 98.3 F-99 F 64-88 18-20 91-130/42-54 96-97 GENERAL: The patient is awake, alert, and oriented times person, in no acute distress. HEAD: Normal with no signs of trauma. EYES: PERRL, extraocular movements intact, sclera anicteric, conjunctiva clear. No ptosis. ENT: Ears normal, nares patent, oropharynx clear without exudates, moist mucous membranes. NECK: Trachea midline, full range of motion, supple. LUNGS: Breath sounds equal, clear to auscultation bilaterally, no wheezes, no crackles, no accessory muscle use. HEART: Regular rate and rhythm, S1, S2, 2/6 systolic murmur, rub or gallop. ABDOMEN: Soft, palpable mass noted to right upper quadrant, nontender, nondistended, normoactive bowel sounds, no guarding, no rebound, no hepatosplenomegaly, no masses. EXTREMITIES: 2+ pulses, warm, well-perfused, no edema. NEUROLOGICAL: Cranial nerves II through XII grossly intact. Normal speech, gait not observed. PSYCH: Normal mood, normal affect. SKIN: Warm, dry, normal turgor, no rashes or lesions noted Active Medications Generic Name Dose Route Start Last Admin Trade Name Freq PRN Reason Stop Dose Admin Atorvastatin Calcium 40 mg 01/29/17 22:00 01/29/17 21:39 Lipitor - PO 40 mg HS GRANT Administration Ceftriaxone Sodium 1 gm 01/30/17 10:00 Rocephin 1gm Ivpb (Pre-Docked) IVPB DAILY GRANT Heparin Sodium (Porcine) 5,000 unit 01/29/17 22:00 01/29/17 21:38 Heparin - SQ 5,000 unit BID GRANT Administration Sodium Chloride 1,000 mls @ 50 mls/hr 01/29/17 17:30 01/29/17 17:38 Normal Saline - IV 01/30/17 17:29 50 mls/hr ASDIR GRANT Administration Levothyroxine Sodium 25 mcg 01/30/17 07:00 01/30/17 06:40 Synthroid - PO 25 mcg DAILY@0700 GRANT Administration CBC WBC 10.9 K/mm3 (4.0-10.8) H 01/30/17 07:30 RBC 2.73 M/mm3 (4.00-5.60) L 01/30/17 07:30 Hgb 7.6 GM/dl (11.7-16.9) L D 01/30/17 07:30 Hct 23.0 % (35.4-49) L 01/30/17 07:30 MCV 84.4 fl (80-96) 01/30/17 07:30 MCH 27.8 pg (25.7-33.7) 01/30/17 07:30 MCHC 32.9 g/dl (32.0-35.9) 01/30/17 07:30 RDW 13.5 % (11.9-15.9) 01/30/17 07:30 Plt Count 206 K/MM3 (134-434) 01/30/17 07:30 MPV 7.8 fl (7.5-11.1) 01/30/17 07:30 Neutrophils % 79.4 % (42.8-82.8) 01/30/17 07:30 Lymphocytes % 8.6 % (8-40) D 01/30/17 07:30 Monocytes % 11.1 % (3.8-10.2) H D 01/30/17 07:30 Eosinophils % 0.8 % (0-4.5) 01/30/17 07:30 Basophils % 0.1 % (0-2.0) 01/30/17 07:30 Platelet Estimate Adequate (NORMAL) 01/29/17 15:42 CMP Sodium 130 mmol/L (136-145) L 01/30/17 07:30 Potassium 3.2 mmol/L (3.5-5.1) L 01/30/17 07:30 Chloride 103 mmol/L (98-107) 01/30/17 07:30 Carbon Dioxide 22 mmol/L (22-28) 01/30/17 07:30 Anion Gap 5 (8-16) L 01/30/17 07:30 BUN 15 mg/dl (7-18) D 01/30/17 07:30 Creatinine 0.9 mg/dl (0.6-1.3) 01/30/17 07:30 Creat Clearance w eGFR > 60 (>60) 01/29/17 14:04 Random Glucose 89 mg/dl (74-106) D 01/30/17 07:30 Lactic Acid 1.5 mmol/L (0.4-2.0) 01/29/17 17:00 Calcium 7.6 mg/dl (8.4-10.2) L 01/30/17 07:30 Phosphorus 2.3 mg/dl (2.5-4.6) L 01/30/17 08:00 Magnesium 1.6 mg/dL (1.8-2.4) L 01/30/17 08:00 Total Bilirubin 0.6 mg/dl (0.2-1.0) D 01/29/17 14:04 AST 22 U/L (10-42) D 01/29/17 14:04 ALT 13 U/L (10-40) 01/29/17 14:04 Alkaline Phosphatase 103 U/L (32-92) H 01/29/17 14:04 Total Protein 5.7 g/dl (6.4-8.3) L 01/29/17 14:04 Albumin 2.6 g/dl (3.5-5.0) L 01/29/17 14:04 ASSESSMENT/PLAN: 1) sepsis likely secondary to source - wbc is trending downward, pt is afebrile - ceftiaxone (01/29) high concern for bactremia, d/c ceftriaxone, start zosyn, appreciate ID for antibiotic approval - ct scan of abd/pelvis with iv contrast to r/o abscess - f/u blood and urine culture - Dr Aguilar (ID) consulted and followed 2) heme/onc rectosigmoid carcinoma - pt is xeloda q2 weeks (off week) radiation x 10 - family reports he was evaluated by Dr Allan (surgery) risks/benefits of surgery was discussed, family decline any surgical intervention because risks outweigh benefits - ct scan of abd/pelvis with iv contrast - oncologist, Dr Trinidad, will require outpatient follow up normocytic anemia - hgb 7.6 likely dilutional pt rec'd 2 liters of IVF within the past 12 hours, repeat hgb at 1800 - type and screen ordered, will transfuse if hgb is less than 7 3) urinary tract infection - moderate bacteria noted in UA, pending urine culture f/e/n - soft diet - replete magnesium potassium and phosp ppx - heparin - scd/stevan - pt - oob - zantac dispo: requires inpatient care, lengthy discussion with and daughter in law , family is deciding if SNF placement is an option at this time. requires inpatient admission Visit type - Emergency Visit Emergency Visit: Yes ED Registration Date: 01/29/17 Care time: The patient presented to the Emergency Department on the above date and was hospitalized for further evaluation of their emergent condition. - New Patient This patient is new to me today: Yes Date on this admission: 01/30/17 - Critical Care Critical Care patient: No - Discharge Referral Referred to [facility] Med P.C.: No
[2017-01-30 08:31] LABS: BASOPHIL 0.1 % (0-2.0); EOSINOPHIL 0.8 % (0-4.5); MCH 27.8 pg (25.7-33.7); MCHC 32.9 g/dl (32.0-35.9); MEAN CELL VOLUME 84.4 fl (80-96); MEAN PLT VOLUME 7.8 fl (7.5-11.1); NEUTROPHILS 79.4 % (42.8-82.8); PLATELET COUNT 206 K/MM3 (134-434); RDW 13.5 % (11.9-15.9); WHITE BLOOD COUNT 10.9 K/mm3 (4.0-10.8)
[2017-01-30 08:51] LABS: ANION GAP 5 (8-16); CALCIUM 7.6 mg/dl (8.4-10.2); CO2 22 mmol/L (22-28); CREATININE 0.9 mg/dl (0.6-1.3)
[2017-01-30 09:31] LABS: MAGNESIUM 1.6 mg/dL (1.8-2.4); PHOSPHOROUS 2.3 mg/dl (2.5-4.6)
[2017-01-30] MEDS ORDERED: MAGNESIUM SULFATE 2 GM in SODIUM CHLORIDE 100 ML IVPB ONE (09:51)
[2017-01-30] MEDS ORDERED: CEFTRIAXONE 1 GM in DEXTROSE 5%-WATER - 100 ML IVPB SCH (10:00)
[2017-01-30] MEDS ORDERED: cefTRIAXone 1 GM/50 ML BAG (PRE-DOCKED) IVPB SCH (10:00)
--- NOTE | 2017-01-30 10:01 | PN ---
Progress Note (short form) - Note Progress Note: ID Consult dictated Fever ? source Dehydration Colorectal ca Await sepsis workup Empiric zosyn IVF hydration
[2017-01-30] MEDS ORDERED: MAGNESIUM SULF 50% (8.12 MEQ/2 ML-1 GM VIAL) IVPB ONE (10:30)
[2017-01-30] MEDS ORDERED: POTASSIUM CHLORIDE TABS 20 MEQ TABLET.ER (FP) PO ONE (10:30)
[2017-01-30] MEDS ORDERED: MAGNESIUM SULF 50% (8.12 MEQ/2 ML-1 GM VIAL) ONE (10:49)
[2017-01-30] MEDS: PIPERACILLIN/TAZOB 3.375 GM 50 ML IVPB SCH ×2 (10:57→17:15)
[2017-01-30] MEDS: HEPARIN NA (PORCINE) 5,000 UNITS/ML 1ML VIAL SQ SCH ×2 (10:57→21:37)
[2017-01-30] MEDS ORDERED: SODIUM PHOSPHATE - 15 MM in SODIUM CHLORIDE 250 ML IVPB ONE (11:15)
[2017-01-30 11:23] LABS: GLUCOSE,RANDOM 89 mg/dl (74-106)
[2017-01-30] MEDS ORDERED: SODIUM CHLORIDE 0.9%/KCL 1,000 ML IV SCH (13:15)
--- NOTE | 2017-01-30 14:31 | CONS ---
INFECTIOUS DISEASE CONSULTATION DATE OF CONSULTATION: DATE OF DICTATION: 01/30/2017 HISTORY OF PRESENT ILLNESS: The patient is an 86-year-old male with a history of colorectal carcinoma, evaluated for fever. Patient suffers from dementia and cannot give a reliable history. History was obtained from the chart as well as the patient's son. He has a history of colorectal CA, is followed by Dr. Trinidad at [facility]. He has been undergoing radiation therapy and has been receiving Xeloda every 2 weeks. He has received approximately 9 sessions of radiation therapy. He was hospitalized at [facility] from January 27 to January 28, after developing profound weakness and hypotension at radiation. He was felt to be dehydrated. Patient was given IV fluid hydration with clinical improvement. He now returns with elevated blood pressure, increased lethargy, and rigors after receiving a course of radiation therapy on January 29, 2017. At the present time, he is awake, but he is confused. He offers no complaints. He states he has some right shoulder pain which he reports was from a fall. According to the son, he had fallen approximately 2 weeks ago. He denies any other pain. He denies any abdominal pain, vomiting, or diarrhea. His course has been complicated by fever to 101.1. PAST MEDICAL HISTORY: Positive for dementia, hyperlipidemia, hypothyroidism, chronic anemia. PAST SURGICAL HISTORY: Status post ORIF of the ankle, hernia repair. ALLERGIES: No known allergies. MEDICATIONS: 1. Lipitor. 2. Xeloda. 3. Synthroid. SOCIAL HISTORY: Former smoker. Lives at home with family members. SYSTEMS REVIEW: Neurologic: Positive for dementia. No loss of consciousness, seizure activity, or focal weakness. Cardiac: Negative chest pain and palpitations. Respiratory: Negative cough or sputum production. Gastrointestinal: As per HPI. Positive loose bowel movements, possibly secondary to Xeloda. Genitourinary: Negative for urinary tract infection. LABORATORY DATA: White count on admission 14.7, presently 10.9; neutrophils 79; hematocrit 23.0; platelet count 206. BUN 15, creatinine 0.9. Urinalysis: White cells 10-15. Blood and urine cultures pending. Chest x-ray shows some increased markings, right lung field. PHYSICAL EXAMINATION: General: He is awake but confused. He is chronically ill appearing, lethargic. Vital Signs: Temperature 98.3, T-max 101.1; blood pressure 130/54; pulse 74, regular; respirations 18 per minute. HEENT: Sclerae are anicteric. Heart: Sounds S1, S2 with a 2/6 pansystolic murmur. Lungs: Clear. Abdomen: Soft. No tenderness elicited. Healed surgical scars. There is tinting of the skin on the abdomen. Extremities: Negative for edema. There is some slight swelling of the right shoulder, slight warmth. No erythema. IMPRESSION: 1. Fever, unclear source. 2. Colorectal cancer on chemotherapy and radiation therapy. 3. Dehydration. Source of fever and leukocytosis is not clear. Pending sepsis workup. Empiric antibiotic coverage with Zosyn 3.375 g IV piggyback every 8 hours. IV fluid hydration. Transfuse as needed. Will follow. Thank you for the kind referral. CARRIE VASQUEZ M.D. [id number]
[2017-01-30] MEDS: FERROUS SO4 325 MG TABLET (FP) PO SCH (15:33)
[2017-01-30] MEDS: ACETAMINOPHEN 650 MG/20.3 ML ORAL SOLUTION (CUPS) PO PRN (18:10)
[2017-01-30 18:21] LABS: BASOPHIL 0.2 % (0-2.0); EOSINOPHIL 0.1 % (0-4.5); MCH 27.5 pg (25.7-33.7); MEAN CELL VOLUME 83.3 fl (80-96); MEAN PLT VOLUME 7.9 fl (7.5-11.1); NEUTROPHILS 85.2 % (42.8-82.8); PLATELET COUNT 238 K/MM3 (134-434); RDW 12.7 % (11.9-15.9); WHITE BLOOD COUNT 14.8 K/mm3 (4.0-10.8)
[2017-01-30] MEDS: CITALOPRAM HYDROBROMIDE 10 MG TABLET (FP) PO SCH (21:37)
[2017-01-30] MEDS: ATORVASTATIN CA 40 MG TABLET (FP) PO SCH (21:37)
[2017-01-31] MEDS: PIPERACILLIN/TAZOB 3.375 GM 50 ML IVPB SCH ×3 (01:39→17:55)
[2017-01-31] MEDS: LEVOTHYROXINE NA 25 MCG TABLET (FP) PO SCH (06:11)
[2017-01-31 08:26] LABS: ANION GAP 6 (8-16); BASOPHIL 0.3 % (0-2.0); CALCIUM 7.6 mg/dl (8.4-10.2); CO2 23 mmol/L (22-28); EOSINOPHIL 0.6 % (0-4.5); GLUCOSE,RANDOM 117 mg/dl (74-106); MCH 27.5 pg (25.7-33.7); MCHC 32.7 g/dl (32.0-35.9); MEAN CELL VOLUME 84.2 fl (80-96); MEAN PLT VOLUME 7.5 fl (7.5-11.1); NEUTROPHILS 78.7 % (42.8-82.8); PHOSPHOROUS 2.8 mg/dl (2.5-4.6); PLATELET COUNT 226 K/MM3 (134-434); RDW 13.4 % (11.9-15.9); WHITE BLOOD COUNT 13.3 K/mm3 (4.0-10.8)
--- NOTE | 2017-01-31 08:54 | PN ---
Progress Note, Physician History of Present Illness: Awake, mildly confused C/O R shoulder pain Febrile past 24hr No c/o abdominal pain - Current Medication List Current Medications: Active Medications Acetaminophen (Tylenol Oral Solution -) 650 mg PO Q6H PRN PRN Reason: FEVER OR PAIN Last Admin: 01/30/17 18:10 Dose: 650 mg Atorvastatin Calcium (Lipitor -) 40 mg PO HS [facility] Last Admin: 01/30/17 21:37 Dose: 40 mg Cholecalciferol (Vitamin D3 -) 2,000 unit PO DAILY [facility] Citalopram Hydrobromide (Celexa -) 10 mg PO HS [facility] Last Admin: 01/30/17 21:37 Dose: 10 mg Ferrous Sulfate (Feosol -) 325 mg PO DAILY [facility] Last Admin: 01/30/17 15:33 Dose: 325 mg Heparin Sodium (Porcine) (Heparin -) 5,000 unit SQ BID [facility] Last Admin: 01/30/17 21:37 Dose: 5,000 unit Piperacillin Sod/Tazobactam Sod (Zosyn 3.375gm Ivpb (Pre-Docked)) 50 mls @ 100 mls/hr IVPB Q8H-IV GRANT PRN Reason: Protocol Last Admin: 01/31/17 01:39 Dose: 100 mls/hr Levothyroxine Sodium (Synthroid -) 25 mcg PO DAILY@0700 [facility] Last Admin: 01/31/17 06:11 Dose: 25 mcg - Objective Vital Signs: Vital Signs Temperature 98.9 F 01/31/17 04:00 Pulse Rate 77 01/31/17 04:00 Respiratory Rate 18 01/31/17 04:00 Blood Pressure 104/51 01/31/17 04:00 O2 Sat by Pulse Oximetry (%) 95 01/31/17 06:17 Constitutional: Yes: No Distress Eyes: Yes: Conjunctiva Clear Cardiovascular: Yes: Regular Rate and Rhythm, S1, S2 Respiratory: Yes: CTA Bilaterally, Diminished Gastrointestinal: Yes: Normal Bowel Sounds, Soft, Abdomen, Obese. No: Tenderness Edema: Yes Edema: LLE: 1+, RLE: 1+ Labs: CBC, BMP 01/31/17 07:45 01/31/17 07:45 Assessment/Plan Fever, unclear source Dehydration Colorectal ca Await c/s Continue empiric zosyn
[2017-01-31] MEDS: CHOLECALCIFEROL (VITAMIN D3) 1,000 UNIT TABLET (FP) PO SCH (09:10)
[2017-01-31] MEDS: HEPARIN NA (PORCINE) 5,000 UNITS/ML 1ML VIAL SQ SCH ×2 (09:10→21:41)
[2017-01-31] MEDS: FERROUS SO4 325 MG TABLET (FP) PO SCH (09:10)
[2017-01-31] MEDS ORDERED: SODIUM CHLORIDE 0.9%/KCL 1,000 ML IV SCH (09:45)
--- NOTE | 2017-01-31 10:02 | PN ---
Physical Exam: SUBJECTIVE: Patient seen and examined, reports feeling better, denies any chest pain or shortness of breath. spiked a fever last night tmax 101.2 OBJECTIVE: patient is a 86 y/o male with a past medical history of Alzheimer's , HLD, Hypothyroid, Anemia, Anxiety, and rectosigmoid carcinoma(xeloda q2 weeks , radiation therapy x 10 last dose 01/28). Patient was admitted from the emergency department for sepsis and urinary tract infection. Vital Signs Period Temp Pulse Resp BP Sys/Mehta Pulse Ox Last 24 Hr 98.4 F-101.2 F 77-98 18-20 84-133/42-53 93-96 PHYSICAL EXAMINATION GENERAL: The patient is awake, alert, and oriented times person, in no acute distress. HEAD: Normal with no signs of trauma. EYES: PERRL, extraocular movements intact, sclera anicteric, conjunctiva clear. No ptosis. ENT: Ears normal, nares patent, oropharynx clear without exudates, moist mucous membranes. NECK: Trachea midline, full range of motion, supple. LUNGS: Breath sounds equal, clear to auscultation bilaterally, no wheezes, no crackles, no accessory muscle use. HEART: Regular rate and rhythm, S1, S2, 2/6 systolic murmur, rub or gallop. ABDOMEN: Soft, nontender, nondistended, normoactive bowel sounds, no guarding, no rebound, no hepatosplenomegaly, no masses. EXTREMITIES: 2+ pulses, warm, well-perfused, no edema. multiple varicosities noted to bilateral lower extremities NEUROLOGICAL: Cranial nerves II through XII grossly intact. Normal speech, gait not observed. PSYCH: Normal mood, normal affect. SKIN: Warm, dry, normal turgor, no rashes or lesions no Laboratory Results - last 24 hr CBC WBC 13.3 K/mm3 (4.0-10.8) H 01/31/17 07:45 RBC 3.11 M/mm3 (4.00-5.60) L 01/31/17 07:45 Hgb 8.6 GM/dl (11.7-16.9) L 01/31/17 07:45 Hct 26.2 % (35.4-49) L 01/31/17 07:45 MCV 84.2 fl (80-96) 01/31/17 07:45 MCH 27.5 pg (25.7-33.7) 01/31/17 07:45 MCHC 32.7 g/dl (32.0-35.9) 01/31/17 07:45 RDW 13.4 % (11.9-15.9) 01/31/17 07:45 Plt Count 226 K/MM3 (134-434) 01/31/17 07:45 MPV 7.5 fl (7.5-11.1) 01/31/17 07:45 Neutrophils % 78.7 % (42.8-82.8) 01/31/17 07:45 Lymphocytes % 7.6 % (8-40) L D 01/31/17 07:45 Monocytes % 12.8 % (3.8-10.2) H 01/31/17 07:45 Eosinophils % 0.6 % (0-4.5) D 01/31/17 07:45 Basophils % 0.3 % (0-2.0) 01/31/17 07:45 Platelet Estimate Adequate (NORMAL) 01/29/17 15:42 CMP Sodium 131 mmol/L (136-145) L 01/31/17 07:45 Potassium 3.6 mmol/L (3.5-5.1) 01/31/17 07:45 Chloride 102 mmol/L (98-107) 01/31/17 07:45 Carbon Dioxide 23 mmol/L (22-28) 01/31/17 07:45 Anion Gap 6 (8-16) L 01/31/17 07:45 BUN 14 mg/dl (7-18) 01/31/17 07:45 Creatinine 1.0 mg/dl (0.6-1.3) 01/31/17 07:45 Creat Clearance w eGFR > 60 (>60) 01/29/17 14:04 Random Glucose 117 mg/dl (74-106) H D 01/31/17 07:45 Lactic Acid 1.5 mmol/L (0.4-2.0) 01/29/17 17:00 Calcium 7.6 mg/dl (8.4-10.2) L 01/31/17 07:45 Phosphorus 2.8 mg/dl (2.5-4.6) D 01/31/17 07:45 Magnesium 2.0 mg/dL (1.8-2.4) D 01/31/17 07:45 Ferritin 314.719 ng/ml (16.4-293.9) H 01/30/17 07:30 Total Bilirubin 0.6 mg/dl (0.2-1.0) D 01/29/17 14:04 AST 22 U/L (10-42) D 01/29/17 14:04 ALT 13 U/L (10-40) 01/29/17 14:04 Alkaline Phosphatase 103 U/L (32-92) H 01/29/17 14:04 Total Protein 5.7 g/dl (6.4-8.3) L 01/29/17 14:04 Albumin 2.6 g/dl (3.5-5.0) L 01/29/17 14:04 Active Medications Generic Name Dose Route Start Last Admin Trade Name Freq PRN Reason Stop Dose Admin Acetaminophen 650 mg 01/30/17 18:45 01/30/17 18:10 Tylenol Oral Solution - PO 650 mg Q6H PRN Administration FEVER OR PAIN Atorvastatin Calcium 40 mg 01/29/17 22:00 01/30/17 21:37 Lipitor - PO 40 mg HS GRANT Administration Cholecalciferol 2,000 unit 01/31/17 10:00 01/31/17 09:10 Vitamin D3 - PO 2,000 unit DAILY GRANT Administration Citalopram Hydrobromide 10 mg 01/30/17 22:00 01/30/17 21:37 Celexa - PO 10 mg HS GRANT Administration Ferrous Sulfate 325 mg 01/30/17 12:30 01/31/17 09:10 Feosol - PO 325 mg DAILY GRANT Administration Heparin Sodium (Porcine) 5,000 unit 01/29/17 22:00 01/31/17 09:10 Heparin - SQ 5,000 unit BID GRANT Administration Piperacillin Sod/Tazobactam Sod 50 mls @ 100 mls/hr 01/30/17 10:15 01/31/17 09: 10 Zosyn 3.375gm Ivpb (Pre-Docked) IVPB 100 mls/hr Q8H-IV GRANT Administration Protocol Potassium Chloride/Sodium Chloride 1,000 mls @ 75 mls/hr 01/31/17 09:45 Ns+20 Meq Kcl - IV 01/31/17 23:04 ASDIR GRANT Levothyroxine Sodium 25 mcg 01/30/17 07:00 01/31/17 06:11 Synthroid - PO 25 mcg DAILY@0700 [facility] Administration Microbiology 01/29/17 15:15 Urine - Urine Clean Catch Urine Culture - Preliminary Group D Strep Or Entero Coccus Pending Organism 01/29/17 15:15 Blood - Peripheral Venous Blood Culture - Preliminary NO GROWTH OBTAINED AFTER 24 HOURS, INCUBATION TO CONTINUE FOR 4 DAYS. 01/29/17 15:15 Blood - Peripheral Venous Blood Culture - Preliminary NO GROWTH OBTAINED AFTER 24 HOURS, INCUBATION TO CONTINUE FOR 4 DAYS. IMAGING chest xray: no acute pathology noted ct scan of abd/pelvis w/iv contrast: no bowel obstruction, no abscesses, bibasilar pleural effusions, no PNA ASSESSMENT/PLAN: 1) sepsis likely secondary to source - wbc is slightly trending downward, spiked a fever tmax 101.2 - ceftiaxone (01/29) zosyn (01/30 - ) - f/u blood culture NTD and urine culture preliminary enterococcus - Dr Aguilar (ID) consulted and followed 2) heme/onc rectosigmoid carcinoma - pt is xeloda q2 weeks (off week) and radiation x 10 - evaluated by Dr Allan (surgery) in the past, risks/benefits of surgery was discussed, family and patient decline any surgical intervention because risks outweigh benefits - ct scan of abd/pelvis with iv contrast reviewed - lengthy discussion with and daughter in regards to further management of carcinoma, and daughter are considering postponing future radiation and chemotherapy and prefer comfort measures a this time. normocytic anemia - hgb 8.6 trending upward, close monitoring, repeat hgb in AM - will transfuse if hgb is less than 7 3) urinary tract infection - moderate bacteria noted in UA, pending urine culture f/e/n - soft diet - replete electrolytes prn ppx - heparin - scd/stevan - pt - oob - zantac lengthy discussion with and daughter in law, family is considering inpatient [facility]. dispo: requires inpatient care, Visit type - Emergency Visit Emergency Visit: Yes ED Registration Date: 01/29/17 Care time: The patient presented to the Emergency Department on the above date and was hospitalized for further evaluation of their emergent condition. - New Patient This patient is new to me today: No - Critical Care Critical Care patient: No - Discharge Referral Referred to [facility] No
--- NOTE | 2017-01-31 12:26 | EKG ---
Test Reason : Blood Pressure : / mmHG Vent. Rate : 083 BPM Atrial Rate : 088 BPM P-R Int : 000 ms QRS Dur : 114 ms QT Int : 382 ms P-R-T Axes : 000 029 -07 degrees QTc Int : 448 ms SINUS RHYTHM WITH SINUS ARRHYTHMIA and blocked PAC INCOMPLETE RIGHT BUNDLE BRANCH BLOCK BORDERLINE ECG WHEN COMPARED WITH ECG OF 27-JAN-2017 12:02, NO SIGNIFICANT CHANGE WAS FOUND Confirmed by NIEVES NICOLE MD ([id number]) on 01/31/2017 12:25:49 PM Referred By: CHANDA SANTOS Confirmed By:NIEVES NICOLE MD
[2017-01-31 13:11] LABS: THYROXINE (T4) 5.9 ug/dl (4.5-12.1)
[2017-01-31 13:18] LABS: THYROID STIMULATING HORMONE 7.03 uIU/ml (0.358-3.74)
[2017-01-31] MEDS: DOCUSATE SODIUM 100 MG CAPSULE (FP) PO SCH ×2 (17:11→21:42)
[2017-01-31] MEDS: ATORVASTATIN CA 40 MG TABLET (FP) PO SCH (21:41)
[2017-01-31] MEDS: CITALOPRAM HYDROBROMIDE 10 MG TABLET (FP) PO SCH (21:41)
[2017-01-31] MEDS: ACETAMINOPHEN 650 MG/20.3 ML ORAL SOLUTION (CUPS) PO PRN (21:41)
[2017-02-01] MEDS: PIPERACILLIN/TAZOB 3.375 GM 50 ML IVPB SCH ×3 (02:19→18:37)
[2017-02-01] MEDS: DOCUSATE SODIUM 100 MG CAPSULE (FP) PO SCH ×3 (06:27→21:03)
[2017-02-01] MEDS: LEVOTHYROXINE NA 25 MCG TABLET (FP) PO SCH (06:34)
[2017-02-01 08:06] LABS: BASOPHIL 0.3 % (0-2.0); EOSINOPHIL 1.5 % (0-4.5); MCH 27.3 pg (25.7-33.7); MCHC 32.4 g/dl (32.0-35.9); MEAN CELL VOLUME 84.2 fl (80-96); MEAN PLT VOLUME 7.3 fl (7.5-11.1); PLATELET COUNT 211 K/MM3 (134-434); RDW 13.6 % (11.9-15.9); WHITE BLOOD COUNT 10.9 K/mm3 (4.0-10.8)
--- NOTE | 2017-02-01 08:28 | PN ---
Physical Exam: SUBJECTIVE: Patient seen and examined. Feeling stronger today. Was able to walk with PT. OBJECTIVE: Vital Signs Period Temp Pulse Resp BP Sys/Mehta Pulse Ox Last 24 Hr 98 F-98.7 F 76-82 16-20 101-117/46-68 94-96 GENERAL: The patient is awake, alert, oriented x 1. HEAD: Normal with no signs of trauma. EYES: PERRL, extraocular movements intact, sclera anicteric, conjunctiva clear. No ptosis. ENT: Ears normal, nares patent, oropharynx clear without exudates, moist mucous membranes. NECK: Trachea midline, full range of motion, supple. LUNGS: Breath sounds equal, clear to auscultation bilaterally, no wheezes, no crackles, no accessory muscle use. HEART: Regular rate and rhythm, S1, S2. Soft systolic murmur. ABDOMEN: Soft, nontender, nondistended, normoactive bowel sounds, no guarding, no rebound, no hepatosplenomegaly, no masses. EXTREMITIES: 2+ pulses, warm, well-perfused, no edema. NEUROLOGICAL: Cranial nerves II through XII grossly intact. Normal speech, gait not observed. PSYCH: Normal mood, normal affect. SKIN: Warm, dry, normal turgor, no rashes or lesions noted Laboratory Results - last 24 hr 01/31/17 01/31/17 02/01/17 07:45 07:45 08:00 WBC 13.3 H 10.9 H RBC 3.11 L 2.94 L Hgb 8.6 L 8.0 L Hct 26.2 L 24.8 L MCV 84.2 84.2 MCH 27.5 27.3 MCHC 32.7 32.4 RDW 13.4 13.6 Plt Count 226 211 MPV 7.5 7.3 L Neutrophils % 78.7 79.0 Lymphocytes % 7.6 L D 7.9 L Monocytes % 12.8 H 11.3 H Eosinophils % 0.6 D 1.5 D Basophils % 0.3 0.3 Sodium 131 L Potassium 3.6 Chloride 102 Carbon Dioxide 23 Anion Gap 6 L BUN 14 Creatinine 1.0 Random Glucose 117 H D Calcium 7.6 L Phosphorus 2.8 D Magnesium 2.0 D TSH 7.03 H D Active Medications Generic Name Dose Route Start Last Admin Trade Name Freq PRN Reason Stop Dose Admin Acetaminophen 650 mg 01/30/17 18:45 01/31/17 21:41 Tylenol Oral Solution - PO 650 mg Q6H PRN Administration FEVER OR PAIN Atorvastatin Calcium 40 mg 01/29/17 22:00 01/31/17 21:41 Lipitor - PO 40 mg HS GRANT Administration Cholecalciferol 2,000 unit 01/31/17 10:00 01/31/17 09:10 Vitamin D3 - PO 2,000 unit DAILY GRANT Administration Citalopram Hydrobromide 10 mg 01/30/17 22:00 01/31/17 21:41 Celexa - PO 10 mg HS GRANT Administration Docusate Sodium 100 mg 01/31/17 14:00 02/01/17 06:27 Colace - PO Not Given TID GRANT Ferrous Sulfate 325 mg 01/30/17 12:30 01/31/17 09:10 Feosol - PO 325 mg DAILY GRANT Administration Heparin Sodium (Porcine) 5,000 unit 01/29/17 22:00 01/31/17 21:41 Heparin - SQ 5,000 unit BID GRANT Administration Piperacillin Sod/Tazobactam Sod 50 mls @ 100 mls/hr 01/30/17 10:15 02/01/17 02: 19 Zosyn 3.375gm Ivpb (Pre-Docked) IVPB 100 mls/hr Q8H-IV GRANT Administration Protocol Levothyroxine Sodium 25 mcg 01/30/17 07:00 02/01/17 06:34 Synthroid - PO 25 mcg DAILY@0700 [facility] Administration Microbiology 01/29/17 15:15 Blood - Peripheral Venous Blood Culture - Preliminary NO GROWTH OBTAINED AFTER 48 HOURS, INCUBATION TO CONTINUE FOR 3 DAYS. 01/29/17 15:15 Blood - Peripheral Venous Blood Culture - Preliminary NO GROWTH OBTAINED AFTER 48 HOURS, INCUBATION TO CONTINUE FOR 3 DAYS. 01/29/17 15:15 Urine - Urine Clean Catch Urine Culture - Preliminary Group D Strep Or Entero Coccus Streptococcus Viridans IMAGING chest xray: no acute pathology noted ct scan of abd/pelvis w/iv contrast: no bowel obstruction, no abscesses, bibasilar pleural effusions, no PNA ASSESSMENT/PLAN: 1. Sepsis, likely secondary to UTI -WBC trending down -Continue Zosyn (01/30 - ) per family wishes -Blood cultures ngtd -Urine cultures growing Group D strep vs. Enterococcus and Strep viridans -ID following 2. Rectosigmoid carcinoma -Family wishes to defer any further chemo/RTX, decline surgery -Patient has been accepted to [facility] and is awaiting bed assignment -Stop lab draws -Stop sq heparin 3. Hypothyroidism -Continue Synthroid 4. HLD -Continue Atorvastatin 5. F/E/N -Encourage PO intake 6. Ppx -Ambulation with PT -TEDs -No chemical ppx -No indication for GI ppx Dispo: Awaiting [facility] bed assignment.
[2017-02-01 08:30] LABS: ANION GAP 6 (8-16); CALCIUM 7.7 mg/dl (8.4-10.2); CO2 23 mmol/L (22-28); CREATININE 1.1 mg/dl (0.6-1.3); GLUCOSE,RANDOM 101 mg/dl (74-106); MAGNESIUM 1.9 mg/dL (1.8-2.4); PHOSPHOROUS 2.8 mg/dl (2.5-4.6)
[2017-02-01] MEDS: CHOLECALCIFEROL (VITAMIN D3) 1,000 UNIT TABLET (FP) PO SCH (09:30)
[2017-02-01] MEDS: ACETAMINOPHEN 650 MG/20.3 ML ORAL SOLUTION (CUPS) PO PRN ×2 (09:30→21:02)
[2017-02-01] MEDS: FERROUS SO4 325 MG TABLET (FP) PO SCH (09:31)
[2017-02-01] MEDS: HEPARIN NA (PORCINE) 5,000 UNITS/ML 1ML VIAL SQ SCH (09:31)
[2017-02-01] MEDS: CITALOPRAM HYDROBROMIDE 10 MG TABLET (FP) PO SCH (21:03)
[2017-02-01] MEDS: ATORVASTATIN CA 40 MG TABLET (FP) PO SCH (21:03)
[2017-02-02] MEDS: PIPERACILLIN/TAZOB 3.375 GM 50 ML IVPB SCH ×3 (02:20→18:23)
[2017-02-02] MEDS: LEVOTHYROXINE NA 25 MCG TABLET (FP) PO SCH (06:53)
[2017-02-02] MEDS: DOCUSATE SODIUM 100 MG CAPSULE (FP) PO SCH ×3 (06:53→22:36)
--- NOTE | 2017-02-02 10:55 | PN ---
Physical Exam: SUBJECTIVE: Patient seen and examined. Feels well, just "a little fuzzy" when standing. OBJECTIVE: Vital Signs Period Temp Pulse Resp BP Sys/Mehta Pulse Ox Last 24 Hr 98.7 F-99.0 F 63-76 16-18 103-112/49-53 94-98 GENERAL: The patient is awake, alert, oriented x 1, in no acute distress. HEAD: Normal with no signs of trauma. EYES: PERRL, extraocular movements intact, sclera anicteric, conjunctiva clear. No ptosis. ENT: Ears normal, nares patent, oropharynx clear without exudates, moist mucous membranes. NECK: Trachea midline, full range of motion, supple. LUNGS: Breath sounds equal, clear to auscultation bilaterally, no wheezes, no crackles, no accessory muscle use. HEART: Regular rate and rhythm, S1, S2 without murmur, rub or gallop. ABDOMEN: Soft, nontender, nondistended, normoactive bowel sounds, no guarding, no rebound, no hepatosplenomegaly, no masses. EXTREMITIES: 2+ pulses, warm, well-perfused, no edema. NEUROLOGICAL: Cranial nerves II through XII grossly intact. Normal speech, gait not observed. PSYCH: Pleasant affect. SKIN: Warm, dry, normal turgor, no rashes or lesions noted Active Medications Generic Name Dose Route Start Last Admin Trade Name Freq PRN Reason Stop Dose Admin Acetaminophen 650 mg 01/30/17 18:45 02/01/17 21:02 Tylenol Oral Solution - PO 650 mg Q6H PRN Administration FEVER OR PAIN Atorvastatin Calcium 40 mg 01/29/17 22:00 02/01/17 21:03 Lipitor - PO 40 mg HS GRANT Administration Cholecalciferol 2,000 unit 01/31/17 10:00 02/01/17 09:30 Vitamin D3 - PO 2,000 unit DAILY GRANT Administration Citalopram Hydrobromide 10 mg 01/30/17 22:00 02/01/17 21:03 Celexa - PO 10 mg HS GRANT Administration Docusate Sodium 100 mg 01/31/17 14:00 02/02/17 06:53 Colace - PO Not Given TID GRANT Ferrous Sulfate 325 mg 01/30/17 12:30 02/01/17 09:31 Feosol - PO 325 mg DAILY GRANT Administration Piperacillin Sod/Tazobactam Sod 50 mls @ 100 mls/hr 01/30/17 10:15 02/02/17 02: 20 Zosyn 3.375gm Ivpb (Pre-Docked) IVPB 100 mls/hr Q8H-IV GRANT Administration Protocol Levothyroxine Sodium 25 mcg 01/30/17 07:00 02/02/17 06:53 Synthroid - PO 25 mcg DAILY@0700 GRANT Administration Microbiology 01/29/17 15:15 Blood - Peripheral Venous Blood Culture - Preliminary NO GROWTH OBTAINED AFTER 72 HOURS, INCUBATION TO CONTINUE FOR 2 DAYS. 01/29/17 15:15 Blood - Peripheral Venous Blood Culture - Preliminary NO GROWTH OBTAINED AFTER 72 HOURS, INCUBATION TO CONTINUE FOR 2 DAYS. 01/29/17 15:15 Urine - Urine Clean Catch Urine Culture - Preliminary Group D Strep Or Entero Coccus Streptococcus Viridans IMAGING Chest xray: no acute pathology CT scan of abd/pelvis w/iv contrast: no bowel obstruction, no abscesses, bibasilar pleural effusions, no PNA ASSESSMENT/PLAN: 1. Sepsis, likely secondary to UTI -Leukocytosis resolved -Continue Zosyn (01/30 - ) per family wishes -Blood cultures ngtd -Preliminary urine culture results: Group D strep vs. Enterococcus and Strep viridans -ID following 2. Rectosigmoid carcinoma -Family wishes to defer any further chemo/RTX, decline surgery, do want abx -Patient has been accepted to [facility] and is awaiting bed assignment -Stop lab draws -Stop sq heparin 3. Hypothyroidism -Continue Synthroid 4. HLD -Continue Atorvastatin 5. F/E/N -Encourage PO intake 6. Ppx -Ambulation with PT -TEDs -No chemical ppx -No indication for GI ppx Dispo: Awaiting [facility] bed assignment.
[2017-02-02] MEDS: FERROUS SO4 325 MG TABLET (FP) PO SCH (11:18)
[2017-02-02] MEDS: CHOLECALCIFEROL (VITAMIN D3) 1,000 UNIT TABLET (FP) PO SCH (11:18)
[2017-02-02] MEDS: ATORVASTATIN CA 40 MG TABLET (FP) PO SCH (22:35)
[2017-02-02] MEDS: CITALOPRAM HYDROBROMIDE 10 MG TABLET (FP) PO SCH (22:35)
[2017-02-03] MEDS: PIPERACILLIN/TAZOB 3.375 GM 50 ML IVPB SCH (02:01)
[2017-02-03] MEDS: DOCUSATE SODIUM 100 MG CAPSULE (FP) PO SCH ×2 (05:30→13:41)
[2017-02-03] MEDS: LEVOTHYROXINE NA 25 MCG TABLET (FP) PO SCH (06:45)
--- NOTE | 2017-02-03 09:14 | PN ---
Progress Note, Physician History of Present Illness: Awake, lethargic No complaints offered Afebrile Blood c/s (-) Urine c/s mixed - Current Medication List Current Medications: Active Medications Acetaminophen (Tylenol Oral Solution -) 650 mg PO Q6H PRN PRN Reason: FEVER OR PAIN Last Admin: 02/01/17 21:02 Dose: 650 mg Atorvastatin Calcium (Lipitor -) 40 mg PO HS [facility] Last Admin: 02/02/17 22:35 Dose: 40 mg Cholecalciferol (Vitamin D3 -) 2,000 unit PO DAILY [facility] Last Admin: 02/02/17 11:18 Dose: 2,000 unit Citalopram Hydrobromide (Celexa -) 10 mg PO HS [facility] Last Admin: 02/02/17 22:35 Dose: 10 mg Docusate Sodium (Colace -) 100 mg PO TID [facility] Last Admin: 02/03/17 05:30 Dose: Not Given Ferrous Sulfate (Feosol -) 325 mg PO DAILY [facility] Last Admin: 02/02/17 11:18 Dose: 325 mg Piperacillin Sod/Tazobactam Sod (Zosyn 3.375gm Ivpb (Pre-Docked)) 50 mls @ 100 mls/hr IVPB Q8H-IV GRANT PRN Reason: Protocol Last Admin: 02/03/17 02:01 Dose: 100 mls/hr Levothyroxine Sodium (Synthroid -) 25 mcg PO DAILY@0700 [facility] Last Admin: 02/03/17 06:45 Dose: 25 mcg - Objective Vital Signs: Vital Signs Temperature 98.0 F 02/03/17 06:11 Pulse Rate 67 02/03/17 06:11 Respiratory Rate 20 02/03/17 06:11 Blood Pressure 109/37 02/03/17 06:11 O2 Sat by Pulse Oximetry (%) 98 02/03/17 06:11 Constitutional: Yes: No Distress Eyes: Yes: Conjunctiva Clear Cardiovascular: Yes: Regular Rate and Rhythm, S1, S2 Respiratory: Yes: CTA Bilaterally Gastrointestinal: Yes: Normal Bowel Sounds, Soft. No: Tenderness Extremities: Yes: Other Labs: CBC, BMP 02/01/17 08:00 02/01/17 08:00 Assessment/Plan Fever - resolved Dehydration Colorectal ca Substitute po Augmentin Family requesting palliative care
[2017-02-03] MEDS: CHOLECALCIFEROL (VITAMIN D3) 1,000 UNIT TABLET (FP) PO SCH (09:56)
[2017-02-03] MEDS: FERROUS SO4 325 MG TABLET (FP) PO SCH (09:56)
[2017-02-03] MEDS: AMOX TR/POT CLAV 875MG/125MG TABLETS (FP) PO SCH ×2 (09:56→17:17)
--- NOTE | 2017-02-03 13:01 | PN ---
Physical Exam: SUBJECTIVE: Patient seen and examined, patient reports feeling better, denies any tactile fever OBJECTIVE: patient is a 86 y/o male with a past medical history of Alzheimer's, HLD, Hypothyroid, Anemia, Anxiety, and rectosigmoid carcinoma(xeloda q2 weeks, radiation therapy x 10 last dose 01/28). Patient was admitted from the emergency department for sepsis and urinary tract infection. Vital Signs Period Temp Pulse Resp BP Sys/Mehta Pulse Ox Last 24 Hr 97.7 F-98.1 F 66-85 16-20 101-136/37-52 95-98 GENERAL: The patient is awake, alert, and oriented times person and place, in no acute distress. HEAD: Normal with no signs of trauma. EYES: PERRL, extraocular movements intact, sclera anicteric, conjunctiva clear. No ptosis. ENT: Ears normal, nares patent, oropharynx clear without exudates, moist mucous membranes. NECK: Trachea midline, full range of motion, supple. LUNGS: Breath sounds equal, clear to auscultation bilaterally, no wheezes, no crackles, no accessory muscle use. HEART: Regular rate and rhythm, S1, S2, 2/6 systolic murmur, rub or gallop. ABDOMEN: Soft, nontender, nondistended, normoactive bowel sounds, no guarding, no rebound, no hepatosplenomegaly, no masses. EXTREMITIES: 2+ pulses, warm, well-perfused, no edema. multiple varicosities noted to bilateral lower extremities NEUROLOGICAL: Cranial nerves II through XII grossly intact. Normal speech, gait not observed. PSYCH: Normal mood, normal affect. SKIN: Warm, dry, normal turgor, no rashes or lesions no CBC WBC 10.9 K/mm3 (4.0-10.8) H 02/01/17 08:00 RBC 2.94 M/mm3 (4.00-5.60) L 02/01/17 08:00 Hgb 8.0 GM/dl (11.7-16.9) L 02/01/17 08:00 Hct 24.8 % (35.4-49) L 02/01/17 08:00 MCV 84.2 fl (80-96) 02/01/17 08:00 MCH 27.3 pg (25.7-33.7) 02/01/17 08:00 MCHC 32.4 g/dl (32.0-35.9) 02/01/17 08:00 RDW 13.6 % (11.9-15.9) 02/01/17 08:00 Plt Count 211 K/MM3 (134-434) 02/01/17 08:00 MPV 7.3 fl (7.5-11.1) L 02/01/17 08:00 Neutrophils % 79.0 % (42.8-82.8) 02/01/17 08:00 Lymphocytes % 7.9 % (8-40) L 02/01/17 08:00 Monocytes % 11.3 % (3.8-10.2) H 02/01/17 08:00 Eosinophils % 1.5 % (0-4.5) D 02/01/17 08:00 Basophils % 0.3 % (0-2.0) 02/01/17 08:00 Platelet Estimate Adequate (NORMAL) 01/29/17 15:42 CMP Sodium 130 mmol/L (136-145) L 02/01/17 08:00 Potassium 3.5 mmol/L (3.5-5.1) 02/01/17 08:00 Chloride 101 mmol/L (98-107) 02/01/17 08:00 Carbon Dioxide 23 mmol/L (22-28) 02/01/17 08:00 Anion Gap 6 (8-16) L 02/01/17 08:00 BUN 17 mg/dl (7-18) D 02/01/17 08:00 Creatinine 1.1 mg/dl (0.6-1.3) 02/01/17 08:00 Creat Clearance w eGFR > 60 (>60) 01/29/17 14:04 Random Glucose 101 mg/dl (74-106) 02/01/17 08:00 Lactic Acid 1.5 mmol/L (0.4-2.0) 01/29/17 17:00 Calcium 7.7 mg/dl (8.4-10.2) L 02/01/17 08:00 Phosphorus 2.8 mg/dl (2.5-4.6) 02/01/17 08:00 Magnesium 1.9 mg/dL (1.8-2.4) 02/01/17 08:00 Ferritin 314.719 ng/ml (16.4-293.9) H 01/30/17 07:30 Total Bilirubin 0.6 mg/dl (0.2-1.0) D 01/29/17 14:04 AST 22 U/L (10-42) D 01/29/17 14:04 ALT 13 U/L (10-40) 01/29/17 14:04 Alkaline Phosphatase 103 U/L (32-92) H 01/29/17 14:04 Total Protein 5.7 g/dl (6.4-8.3) L 01/29/17 14:04 Albumin 2.6 g/dl (3.5-5.0) L 01/29/17 14:04 TSH 7.03 uIU/ml (0.358-3.74) H D 01/31/17 07:45 Active Medications Generic Name Dose Route Start Last Admin Trade Name Freq PRN Reason Stop Dose Admin Acetaminophen 650 mg 01/30/17 18:45 02/01/17 21:02 Tylenol Oral Solution - PO 650 mg Q6H PRN Administration FEVER OR PAIN Amoxicillin/Clavulanate Potassium 1 tab 02/03/17 09:30 02/03/17 09:56 Augmentin - 875mg Tablet PO 1 tab BID@0800,1730 [facility] Administration Atorvastatin Calcium 40 mg 01/29/17 22:00 02/02/17 22:35 Lipitor - PO 40 mg HS GRANT Administration Cholecalciferol 2,000 unit 01/31/17 10:00 02/03/17 09:56 Vitamin D3 - PO 2,000 unit DAILY [facility] Administration Citalopram Hydrobromide 10 mg 01/30/17 22:00 02/02/17 22:35 Celexa - PO 10 mg HS GRANT Administration Docusate Sodium 100 mg 01/31/17 14:00 02/03/17 05:30 Colace - PO Not Given TID GRANT Ferrous Sulfate 325 mg 01/30/17 12:30 02/03/17 09:56 Feosol - PO 325 mg DAILY [facility] Administration Levothyroxine Sodium 25 mcg 01/30/17 07:00 02/03/17 06:45 Synthroid - PO 25 mcg DAILY@0700 [facility] Administration Microbiology 01/29/17 15:15 Blood - Peripheral Venous Blood Culture - Preliminary NO GROWTH OBTAINED AFTER 96 HOURS, INCUBATION TO CONTINUE FOR 1 DAYS. 01/29/17 15:15 Blood - Peripheral Venous Blood Culture - Preliminary NO GROWTH OBTAINED AFTER 96 HOURS, INCUBATION TO CONTINUE FOR 1 DAYS. 01/29/17 15:15 Urine - Urine Clean Catch Urine Culture - Final Enterococcus Faecalis Streptococcus Viridans IMAGING Chest xray: no acute pathology CT scan of abd/pelvis w/iv contrast: no bowel obstruction, no abscesses, bibasilar pleural effusions, no PNA ASSESSMENT/PLAN: 1. Sepsis, likely secondary to UTI -Leukocytosis resolved -Continue Zosyn (01/30 -02/02) and augmentin (02/03-) per family wishes -Blood cultures NTD, urine culture Enterococcus and Strep viridans -ID following, Dr Aguilar 2. Rectosigmoid carcinoma -Family wishes to defer any further chemo/RTX, decline surgery, do want abx -Patient has been accepted to [facility] and is awaiting bed assignment -Stop lab draws -Stop sq heparin 3. Hypothyroidism -Continue Synthroid 4. HLD -Continue Atorvastatin 5. F/E/N -Encourage PO intake 6. Ppx -Ambulation with PT -TEDs -No chemical ppx -No indication for GI ppx Dispo: Awaiting [facility] bed assignment. Visit type - Emergency Visit Emergency Visit: Yes ED Registration Date: 01/29/17 Care time: The patient presented to the Emergency Department on the above date and was hospitalized for further evaluation of their emergent condition. - New Patient This patient is new to me today: No - Critical Care Critical Care patient: No - Discharge Referral Referred to [facility] No
[2017-02-03] MEDS: DOCUSATE SODIUM 50 MG/5 ML ML *BULK BOTTLE PO SCH ×2 (15:49→21:33)
[2017-02-03] MEDS: CITALOPRAM HYDROBROMIDE 10 MG TABLET (FP) PO SCH (21:33)
[2017-02-03] MEDS: ATORVASTATIN CA 40 MG TABLET (FP) PO SCH (21:33)
[2017-02-04 06:48] VITALS: PULSE 75
[2017-02-04] MEDS: DOCUSATE SODIUM 50 MG/5 ML ML *BULK BOTTLE PO SCH (06:54)
[2017-02-04] MEDS: LEVOTHYROXINE NA 25 MCG TABLET (FP) PO SCH (06:55)
[2017-02-04] MEDS: AMOX TR/POT CLAV 875MG/125MG TABLETS (FP) PO SCH (08:06)
[2017-02-04] MEDS: CHOLECALCIFEROL (VITAMIN D3) 1,000 UNIT TABLET (FP) PO SCH (09:05)
[2017-02-04] MEDS: FERROUS SO4 325 MG TABLET (FP) PO SCH (09:05)
--- NOTE | 2017-02-04 09:49 | PN ---
Progress Note, Physician History of Present Illness: Awake, alert No complaints Denies abdominal pain Temps down- afebrile WBC improved - Current Medication List Current Medications: Active Medications Acetaminophen (Tylenol Oral Solution -) 650 mg PO Q6H PRN PRN Reason: FEVER OR PAIN Last Admin: 02/01/17 21:02 Dose: 650 mg Amoxicillin/Clavulanate Potassium (Augmentin - 875mg Tablet) 1 tab PO BID@0800, 1730 [facility] Last Admin: 02/04/17 08:06 Dose: 1 tab Atorvastatin Calcium (Lipitor -) 40 mg PO HS [facility] Last Admin: 02/03/17 21:33 Dose: 40 mg Cholecalciferol (Vitamin D3 -) 2,000 unit PO DAILY [facility] Last Admin: 02/04/17 09:05 Dose: 2,000 unit Citalopram Hydrobromide (Celexa -) 10 mg PO HS [facility] Last Admin: 02/03/17 21:33 Dose: 10 mg Docusate Sodium (Colace Liquid -) 100 mg PO TID [facility] Last Admin: 02/04/17 06:54 Dose: Not Given Ferrous Sulfate (Feosol -) 325 mg PO DAILY [facility] Last Admin: 02/04/17 09:05 Dose: 325 mg Levothyroxine Sodium (Synthroid -) 25 mcg PO DAILY@0700 [facility] Last Admin: 02/04/17 06:55 Dose: 25 mcg - Objective Vital Signs: Vital Signs Temperature 99.0 F 02/04/17 05:00 Pulse Rate 75 02/04/17 05:00 Respiratory Rate 17 02/04/17 05:00 Blood Pressure 118/44 02/04/17 05:00 O2 Sat by Pulse Oximetry (%) 96 02/03/17 23:02 Constitutional: Yes: No Distress Eyes: Yes: Conjunctiva Clear Cardiovascular: Yes: Regular Rate and Rhythm, S1, S2 Respiratory: Yes: CTA Bilaterally Gastrointestinal: Yes: Normal Bowel Sounds, Soft. No: Tenderness Edema: No Labs: CBC, BMP 02/01/17 08:00 02/01/17 08:00 Assessment/Plan Fever - resolved Dehydration Colorectal ca Continue po Augmentin. Complete 7d course Family requesting palliative care
--- NOTE | 2017-02-04 10:36 | DS ---
Physical Exam: SUBJECTIVE: Patient seen and examined, patient reports feeling better, denies any pain or fever. 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 Who presents to the ED from home with lethargy, chills ,and elevated BP systolic 200's. Patient was recently admitted for Dehydration d/cd 01/28. Per ED records: Patient had returned home after undergoing RT, feeling weak, waking up with chills. Patient has Alzheimer's and cannot provide HPI. He denies fever, cough, CP, AP, N/V/D, constipation, dysuria. ER course was notable for: (1) SIRS Criteria Met III (2) Na 130 (3) UA- +1 blood, +1 leukocyte esterase, mod Bacteria Vital Signs Period Temp Pulse Resp BP Sys/Mehta Pulse Ox Last 24 Hr 98.5 F-99.0 F 66-75 17-19 98-118/44-53 96-97 PHYSICAL EXAM GENERAL: The patient is awake, alert, and oriented times person and place, in no acute distress. HEAD: Normal with no signs of trauma. EYES: PERRL, extraocular movements intact, sclera anicteric, conjunctiva clear. No ptosis. ENT: Ears normal, nares patent, oropharynx clear without exudates, moist mucous membranes. NECK: Trachea midline, full range of motion, supple. LUNGS: Breath sounds equal, clear to auscultation bilaterally, no wheezes, no crackles, no accessory muscle use. HEART: Regular rate and rhythm, S1, S2, 2/6 systolic murmur, rub or gallop. ABDOMEN: Soft, nontender, nondistended, normoactive bowel sounds, no guarding, no rebound, no hepatosplenomegaly, no masses. EXTREMITIES: 2+ pulses, warm, well-perfused, no edema. multiple varicosities noted to bilateral lower extremities NEUROLOGICAL: Cranial nerves II through XII grossly intact. Normal speech, gait not observed. PSYCH: Normal mood, normal affect. SKIN: Warm, dry, normal turgor, no rashes or lesions no LABS CBC WBC 10.9 K/mm3 (4.0-10.8) H 02/01/17 08:00 RBC 2.94 M/mm3 (4.00-5.60) L 02/01/17 08:00 Hgb 8.0 GM/dl (11.7-16.9) L 02/01/17 08:00 Hct 24.8 % (35.4-49) L 02/01/17 08:00 MCV 84.2 fl (80-96) 02/01/17 08:00 MCH 27.3 pg (25.7-33.7) 02/01/17 08:00 MCHC 32.4 g/dl (32.0-35.9) 02/01/17 08:00 RDW 13.6 % (11.9-15.9) 02/01/17 08:00 Plt Count 211 K/MM3 (134-434) 02/01/17 08:00 MPV 7.3 fl (7.5-11.1) L 02/01/17 08:00 Neutrophils % 79.0 % (42.8-82.8) 02/01/17 08:00 Lymphocytes % 7.9 % (8-40) L 02/01/17 08:00 Monocytes % 11.3 % (3.8-10.2) H 02/01/17 08:00 Eosinophils % 1.5 % (0-4.5) D 02/01/17 08:00 Basophils % 0.3 % (0-2.0) 02/01/17 08:00 Platelet Estimate Adequate (NORMAL) 01/29/17 15:42 CMP Sodium 130 mmol/L (136-145) L 02/01/17 08:00 Potassium 3.5 mmol/L (3.5-5.1) 02/01/17 08:00 Chloride 101 mmol/L (98-107) 02/01/17 08:00 Carbon Dioxide 23 mmol/L (22-28) 02/01/17 08:00 Anion Gap 6 (8-16) L 02/01/17 08:00 BUN 17 mg/dl (7-18) D 02/01/17 08:00 Creatinine 1.1 mg/dl (0.6-1.3) 02/01/17 08:00 Creat Clearance w eGFR > 60 (>60) 01/29/17 14:04 Random Glucose 101 mg/dl (74-106) 02/01/17 08:00 Lactic Acid 1.5 mmol/L (0.4-2.0) 01/29/17 17:00 Calcium 7.7 mg/dl (8.4-10.2) L 02/01/17 08:00 Phosphorus 2.8 mg/dl (2.5-4.6) 02/01/17 08:00 Magnesium 1.9 mg/dL (1.8-2.4) 02/01/17 08:00 Ferritin 314.719 ng/ml (16.4-293.9) H 01/30/17 07:30 Total Bilirubin 0.6 mg/dl (0.2-1.0) D 01/29/17 14:04 AST 22 U/L (10-42) D 01/29/17 14:04 ALT 13 U/L (10-40) 01/29/17 14:04 Alkaline Phosphatase 103 U/L (32-92) H 01/29/17 14:04 Total Protein 5.7 g/dl (6.4-8.3) L 01/29/17 14:04 Albumin 2.6 g/dl (3.5-5.0) L 01/29/17 14:04 TSH 7.03 uIU/ml (0.358-3.74) H D 01/31/17 07:45 Microbiology 01/29/17 15:15 Blood - Peripheral Venous Blood Culture - Final NO GROWTH AFTER 5 DAYS INCUBATION 01/29/17 15:15 Blood - Peripheral Venous Blood Culture - Final NO GROWTH AFTER 5 DAYS INCUBATION 01/29/17 15:15 Urine - Urine Clean Catch Urine Culture - Final Enterococcus Faecalis Streptococcus [place] HOSPITAL COURSE: Date of Admission:01/29/17 Date of Discharge: 02/04/17 Minutes to complete discharge: 45 Discharge Summary Reason For Visit: SEPSIS Current Active Problems DVT prophylaxis (Acute) Hyponatremia (Acute) Sepsis due to urinary tract infection (Acute) Condition: Stable - Instructions Diet, Activity, Other Instructions: resume regular diet continue augmentin for the next 5 days resume all medications as prescribed Referrals: Brandon Westbrook MD [Primary Care Provider] - Disposition: DISCH TO [facility] - Home Medications Comprehensive Discharge Medication List: Ambulatory Orders RX: Atorvastatin Ca [Lipitor] 40 mg PO HS 01/27/17 RX: Capecitabine [Xeloda] 1,000 mg PO ASDIR 01/27/17 RX: Cholecalciferol (Vitamin D3) [Vitamin D3] 2,000 unit PO DAILY 01/27/17 RX: Citalopram Hydrobromide [Citalopram HBr] 10 mg PO HS 01/27/17 RX: Ferrous Sulfate 325 mg PO DAILY 01/27/17 RX: Levothyroxine [Synthroid -] 25 mcg PO DAILY 01/27/17 RX: Amox-Tr/K Cl [Augmentin 875-125mg Tablet -] 1 tab PO BID@0800,1730 #10 tablet 02/03/17 RX: Docusate Sodium [Colace -] 100 mg PO TID cap 02/03/17 - Discharge Referral Referred to [facility] No
[2017-02-04 11:35] VITALS: BP 118/58; TEMP 98.9
== END 2017-02-04 11:50 | disposition hospice, inpatient (51) | DRG 872 ==
LOC: FER 14:45 → FM/S 18:42
PROVIDERS: ADMIT Internal Medicine; ATTEND Nurse Practitioner Family
DX: A41.9 Sepsis, unspecified organism (principal); N39.0 Urinary tract infection, site not specified; E87.1 Hypo-osmolality and hyponatremia; C19 Malignant neoplasm of rectosigmoid junction; D64.9 Anemia, unspecified; F41.9 Anxiety disorder, unspecified; E78.5 Hyperlipidemia, unspecified; E03.9 Hypothyroidism, unspecified; Z87.891 Personal history of nicotine dependence; G30.9 Alzheimer's disease, unspecified; Z92.21 Personal history of antineoplastic chemotherapy; M25.511 Pain in right shoulder
CPT/HCPCS: 36415; 71010-TC; 74177-TC; 80048; 80053; 81003; 81015; 82728; 83540; 83550; 83605; 83735; 84100; 84436; 84443; 85025; 86850; 86900; 86901; 87040; 87077; 87086; 87186; 93005; 93010; 97116-GP; 97162-GP; 99284-25; J1644